=== PATIENT | female | born 1980 | race Caucasian/White ===

== ENCOUNTER 2016-11-07 17:20 | Emergency (ER) | payer BC ==
[2016-11-07] MEDS ORDERED: NS 0.9% 1000 ML* 1,000 ML IV ONE ×2 (18:15→18:58)
[2016-11-07] MEDS ORDERED: Ondansetron INJ* 2 MG/ML VIAL IV ONE (18:28)
[2016-11-07] MEDS ORDERED: Ondansetron INJ* 2 MG/ML VIAL ONE (18:28)
[2016-11-07 18:36] LABS: Hematocrit 42 % (35-47); Hemoglobin 14.2 g/dl (12.0-16.0); Mean Corpuscular HGB Conc 34 g/dl (31-36); Mean Corpuscular Hemoglobin 35 pg (27-31); Mean Corpuscular Volume 102 fL (80-97); Mean Platelet Volume 9 um3 (7.4-10.4); Red Blood Count 4.11 10^6/ul (4.0-5.4); Red Cell Distribution Width 14 % (10.5-15); White Blood Count 11.8 10^3/ul (3.5-10.8)
[2016-11-07 18:55] LABS: ALT 24 U/L (7-52); AST 36 U/L (13-39); Albumin 4.1 g/dL (3.2-5.2); Alkaline Phosphatase 75 U/L (34-104); Anion Gap 16 mmol/L (2-11); BUN/Creatinine Ratio 12.5 (8-20); Blood Urea Nitrogen 9 mg/dL (6-24); CO2 Carbon Dioxide 18 mmol/L (22-32); Calcium 9.2 mg/dL (8.6-10.3); Chloride 102 mmol/L (101-111); EGFR African American 118.5 (>60); EGFR Non-African American 92.2 (>60); Globulin 2.9 g/dL (2-4); Glucose 52 mg/dL (70-100); Lipase 13 U/L (11.0-82.0); Potassium 3.1 mmol/L (3.5-5.0); Sodium 136 mmol/L (133-145)
[2016-11-07] MEDS ORDERED: Potassium Chlor TAB* 20 MEQ TAB.ER PO ONE (18:59)
[2016-11-07 19:06] LABS: Mono Internal Control QC Line Present
[2016-11-07 20:55] LABS: Urine Bacteria Absent (Absent); Urine Bilirubin Negative (Negative); Urine Glucose Negative (Negative); Urine Nitrite Negative (Negative)
[2016-11-07 20:58] LABS: Benzodiazepine Urine Screen None Detected (None Detect)
--- NOTE | 2016-11-07 22:24 | ED ---
GI/ HPI - HPI Summary HPI Summary: 35F presents with fatigue for 3 days. He also admits to nausea and diarrhea. She admits to couple episodes of vomiting. She denies any blood in her stool. She denies any recent antibiotics usage. She denies any one else being sick. She denies any known fevers but states she has been getting cold and hot flashes. She denies any SOB, chest pain, or cough. She denies any dysuria, hematuria. She denies any neck stiffness. She denies any recent travel or camping trips. she has history of IBS. She has history of sludge in gallbladder. States has some right upper quadrant pain at baseline that remains unchanged. Has history of kidney stones that states is not acting up. - History of Current Complaint Chief Complaint: EDGeneral Time Seen by Provider: 11/07/16 18:14 Stated Complaint: FEVER Pain Intensity: 0 - Allergy/Home Medications Allergies/Adverse Reactions: Allergies Allergy/AdvReac Type Severity Reaction Status Date / Time Penicillins Allergy Hives Verified 11/07/16 18:18 PMH/Surg Hx/FS Hx/Imm Hx Endocrine/Hematology History: Denies: Hx Anticoagulant Therapy, Hx Diabetes GI History: Reports: Other GI Disorders - gallabladder sludge History: Reports: Hx Kidney Infection - Surgical History Surgery Procedure, Year, and Place: hysterectomy Infectious Disease History: No Infectious Disease History: Denies: Traveled Outside the [place] in Last 30 Days - Family History Known Family History: Positive: Cardiac Disease - Social History Alcohol Use: Occasionally Substance Use Type: Reports: None Smoking Status (MU): Current Every Day Smoker Review of Systems Positive: Fever, Chills, Fatigue Negative: Chest Pain Negative: Shortness Of Breath, Cough Positive: Vomiting, Diarrhea, Nausea. Negative: Abdominal Pain Negative: dysuria All Other Systems Reviewed And Are Negative: Yes Physical Exam Triage Information Reviewed: Yes Vital Signs On Initial Exam: Initial Vitals Temp Pulse Resp BP Pulse Ox 96 F 73 17 101/59 100 11/07/16 17:28 11/07/16 17:28 11/07/16 17:28 11/07/16 17:28 11/07/16 17:28 Vital Signs Reviewed: Yes Appearance: Positive: Ill-Appearing Skin: Positive: Warm, Dry Head/Face: Positive: Normal Head/Face Inspection Eyes: Positive: Normal, EOMI, YO, Conjunctiva Clear ENT: Positive: Normal ENT inspection, Pharynx normal, TM bulging Neck: Positive: Supple, Nontender, No Lymphadenopathy. Negative: Nuchal Rigidity Respiratory/Lung Sounds: Positive: Clear to Auscultation, Breath Sounds Present Cardiovascular: Positive: Normal, RRR Abdomen Description: Positive: Nontender, Soft Bowel Sounds: Positive: Present - Daniel Coma Scale Coma Scale Total: 15 Diagnostics - Vital Signs Vital Signs Temp Pulse Resp BP Pulse Ox 11/07/16 19:00 75 88/39 98 11/07/16 18:30 69 98/50 99 11/07/16 18:19 67 100 11/07/16 18:16 103/61 11/07/16 17:28 96 F 73 17 101/59 100 - Laboratory Lab Results: Lab Results 11/07/16 11/07/16 11/07/16 Range/Units 18:24 18:24 18:24 WBC 11.8 H (3.5-10.8) 10^3/ul RBC 4.11 (4.0-5.4) 10^6/ul Hgb 14.2 (12.0-16.0) g/dl Hct 42 (35-47) % MCV 102 H (80-97) fL MCH 35 H (27-31) pg MCHC 34 (31-36) g/dl RDW 14 (10.5-15) % Plt Count 210 (150-450) 10^3/ul MPV 9 (7.4-10.4) um3 Neut % (Auto) 71.2 (38-83) % Lymph % (Auto) 23.0 L (25-47) % Hendricks % (Auto) 4.5 (1-9) % Eos % (Auto) 0.5 (0-6) % Baso % (Auto) 0.8 (0-2) % Absolute Neuts (auto) 8.4 H (1.5-7.7) 10^3/ul Absolute Lymphs (auto) 2.7 (1.0-4.8) 10^3/ul Absolute Monos (auto) 0.5 (0-0.8) 10^3/ul Absolute Eos (auto) 0.1 (0-0.6) 10^3/ul Absolute Basos (auto) 0.1 (0-0.2) 10^3/ul Absolute Nucleated RBC 0.01 10^3/ul Nucleated RBC % 0.1 Sodium 136 (133-145) mmol/L Potassium 3.1 L (3.5-5.0) mmol/L Chloride 102 (101-111) mmol/L Carbon Dioxide 18 L (22-32) mmol/L Anion Gap 16 H (2-11) mmol/L BUN 9 (6-24) mg/dL Creatinine 0.72 (0.51-0.95) mg/dL Est GFR ( Amer) 118.5 (>60) Est GFR (Non-Af Amer) 92.2 (>60) BUN/Creatinine Ratio 12.5 (8-20) Glucose 52 L (70-100) mg/dL Lactic Acid 4.1 H* (0.5-2.0) mmol/L Calcium 9.2 (8.6-10.3) mg/dL Total Bilirubin 0.70 (0.2-1.0) mg/dL AST 36 (13-39) U/L ALT 24 (7-52) U/L Alkaline Phosphatase 75 (34-104) U/L C-React Prot High Sens 0.34 mg/L Total Protein 7.0 (6.4-8.9) g/dL Albumin 4.1 (3.2-5.2) g/dL Globulin 2.9 (2-4) g/dL Albumin/Globulin Ratio 1.4 (1-3) Lipase 13 (11.0-82.0) U/L Beta HCG, Quant < 0.60 mIU/mL Urine Color Urine Appearance Urine pH (5-9) Ur Specific [place] (1.010-1.030) Urine Protein (Negative) Urine Ketones (Negative) Urine Blood (Negative) Urine Nitrate (Negative) Urine Bilirubin (Negative) Urine Urobilinogen (Negative) Ur Leukocyte Esterase (Negative) Urine WBC (Auto) (Absent) Urine RBC (Auto) (Absent) Ur Squamous Epith Cells (Absent) Urine Bacteria (Absent) Urine Glucose (Negative) Urine Opiates Screen (None Detect) Ur Barbiturates Screen (None Detect) Ur Phencyclidine Scrn (None Detect) Ur Amphetamines Screen (None Detect) U Benzodiazepines Scrn (None Detect) Urine Cocaine Screen (None Detect) U Cannabinoids Screen (None Detect) Monoscreen Negative (Negative) Influenza A (Rapid) (Negative) Influenza B (Rapid) (Negative) Group A Strep Rapid (Negative) 11/07/16 11/07/16 11/07/16 Range/Units 18:38 18:40 20:30 WBC (3.5-10.8) 10^3/ul RBC (4.0-5.4) 10^6/ul Hgb (12.0-16.0) g/dl Hct (35-47) % MCV (80-97) fL MCH (27-31) pg MCHC (31-36) g/dl RDW (10.5-15) % Plt Count (150-450) 10^3/ul MPV (7.4-10.4) um3 Neut % (Auto) (38-83) % Lymph % (Auto) (25-47) % Hendricks % (Auto) (1-9) % Eos % (Auto) (0-6) % Baso % (Auto) (0-2) % Absolute Neuts (auto) (1.5-7.7) 10^3/ul Absolute Lymphs (auto) (1.0-4.8) 10^3/ul Absolute Monos (auto) (0-0.8) 10^3/ul Absolute Eos (auto) (0-0.6) 10^3/ul Absolute Basos (auto) (0-0.2) 10^3/ul Absolute Nucleated RBC 10^3/ul Nucleated RBC % Sodium (133-145) mmol/L Potassium (3.5-5.0) mmol/L Chloride (101-111) mmol/L Carbon Dioxide (22-32) mmol/L Anion Gap (2-11) mmol/L BUN (6-24) mg/dL Creatinine (0.51-0.95) mg/dL Est GFR ( Amer) (>60) Est GFR (Non-Af Amer) (>60) BUN/Creatinine Ratio (8-20) Glucose (70-100) mg/dL Lactic Acid (0.5-2.0) mmol/L Calcium (8.6-10.3) mg/dL Total Bilirubin (0.2-1.0) mg/dL AST (13-39) U/L ALT (7-52) U/L Alkaline Phosphatase (34-104) U/L C-React Prot High Sens mg/L Total Protein (6.4-8.9) g/dL Albumin (3.2-5.2) g/dL Globulin (2-4) g/dL Albumin/Globulin Ratio (1-3) Lipase (11.0-82.0) U/L Beta HCG, Quant mIU/mL Urine Color Yellow Urine Appearance Clear Urine pH 6.0 (5-9) Ur Specific [place] 1.014 (1.010-1.030) Urine Protein Negative (Negative) Urine Ketones 1+ H (Negative) Urine Blood 1+ H (Negative) Urine Nitrate Negative (Negative) Urine Bilirubin Negative (Negative) Urine Urobilinogen Negative (Negative) Ur Leukocyte Esterase Negative (Negative) Urine WBC (Auto) Trace(0-5/hpf) (Absent) Urine RBC (Auto) 1+(3-5/hpf) H (Absent) Ur Squamous Epith Cells Present H (Absent) Urine Bacteria Absent (Absent) Urine Glucose Negative (Negative) Urine Opiates Screen (None Detect) Ur Barbiturates Screen (None Detect) Ur Phencyclidine Scrn (None Detect) Ur Amphetamines Screen (None Detect) U Benzodiazepines Scrn (None Detect) Urine Cocaine Screen (None Detect) U Cannabinoids Screen (None Detect) Monoscreen (Negative) Influenza A (Rapid) Negative (Negative) Influenza B (Rapid) Negative (Negative) Group A Strep Rapid Negative (Negative) 11/07/16 11/07/16 Range/Units 20:30 21:13 WBC (3.5-10.8) 10^3/ul RBC (4.0-5.4) 10^6/ul Hgb (12.0-16.0) g/dl Hct (35-47) % MCV (80-97) fL MCH (27-31) pg MCHC (31-36) g/dl RDW (10.5-15) % Plt Count (150-450) 10^3/ul MPV (7.4-10.4) um3 Neut % (Auto) (38-83) % Lymph % (Auto) (25-47) % Hendricks % (Auto) (1-9) % Eos % (Auto) (0-6) % Baso % (Auto) (0-2) % Absolute Neuts (auto) (1.5-7.7) 10^3/ul Absolute Lymphs (auto) (1.0-4.8) 10^3/ul Absolute Monos (auto) (0-0.8) 10^3/ul Absolute Eos (auto) (0-0.6) 10^3/ul Absolute Basos (auto) (0-0.2) 10^3/ul Absolute Nucleated RBC 10^3/ul Nucleated RBC % Sodium (133-145) mmol/L Potassium (3.5-5.0) mmol/L Chloride (101-111) mmol/L Carbon Dioxide (22-32) mmol/L Anion Gap (2-11) mmol/L BUN (6-24) mg/dL Creatinine (0.51-0.95) mg/dL Est GFR ( Amer) (>60) Est GFR (Non-Af Amer) (>60) BUN/Creatinine Ratio (8-20) Glucose (70-100) mg/dL Lactic Acid 4.0 H* (0.5-2.0) mmol/L Calcium (8.6-10.3) mg/dL Total Bilirubin (0.2-1.0) mg/dL AST (13-39) U/L ALT (7-52) U/L Alkaline Phosphatase (34-104) U/L C-React Prot High Sens mg/L Total Protein (6.4-8.9) g/dL Albumin (3.2-5.2) g/dL Globulin (2-4) g/dL Albumin/Globulin Ratio (1-3) Lipase (11.0-82.0) U/L Beta HCG, Quant mIU/mL Urine Color Urine Appearance Urine pH (5-9) Ur Specific [place] (1.010-1.030) Urine Protein (Negative) Urine Ketones (Negative) Urine Blood (Negative) Urine Nitrate (Negative) Urine Bilirubin (Negative) Urine Urobilinogen (Negative) Ur Leukocyte Esterase (Negative) Urine WBC (Auto) (Absent) Urine RBC (Auto) (Absent) Ur Squamous Epith Cells (Absent) Urine Bacteria (Absent) Urine Glucose (Negative) Urine Opiates Screen None detected (None Detect) Ur Barbiturates Screen None detected (None Detect) Ur Phencyclidine Scrn None detected (None Detect) Ur Amphetamines Screen None detected (None Detect) U Benzodiazepines Scrn None detected (None Detect) Urine Cocaine Screen None detected (None Detect) U Cannabinoids Screen Presumptive positive H (None Detect) Monoscreen (Negative) Influenza A (Rapid) (Negative) Influenza B (Rapid) (Negative) Group A Strep Rapid (Negative) Result Diagrams: 11/07/16 18:24 11/07/16 18:24 Lab Statement: Any lab studies that have been ordered have been reviewed, and results considered in the medical decision making process. Re-Evaluation - Re-Evaluation First Eval Re-Evaluation Time: 00:00 Change: Improved Comment: lactic elevated will give 2 more liters of fluid Second Eval Re-Evaluation Time: 02:18 Change: Improved Comment: lactic 1.6. patient states would like to go home GIGU Course/Dx - Course Course Of Treatment: 35F presents with fatigue for 3 days. He also admits to nausea and diarrhea. She admits to couple episodes of vomiting. She denies any blood in her stool. She denies any recent antibiotics usage. She denies any one else being sick. She denies any known fevers but states she has been getting cold and hot flashes. She denies any SOB, chest pain, or cough. She denies any dysuria, hematuria. She denies any neck stiffness. She denies any recent travel or camping trips. she has history of IBS. She has history of sludge in gallbladder. States has some right upper quadrant pain at baseline that remains unchanged. Has history of kidney stones that states is not acting up. on exam abdomen nontender. labs wbc 12. lactric 4. ended up needing 4 liters of fluid to get lactic to 1.6 but patient feels a lot better. discussed case with dr tena and dr mahan. told to follow up with primary. patient understands and agrees with plan. - Diagnoses Differential Diagnoses - Female: Gastroenteritis (Viral), Gastroenteritis ( Bacterial), Urinary Tract Infection, Vomiting Provider Diagnoses: Fatigue, Nausea vomiting and diarrhea Discharge - Discharge Plan Condition: Good Disposition: HOME Prescriptions: Ondansetron ODT TAB* [Zofran 4 MG Odt TAB*] 4 mg PO Q6H PRN #20 tab.odt PRN Reason: Nausea Patient Education Materials: Acute Nausea and Vomiting (ED) Referrals: Sonya Rodriguez MD [Primary Care Provider] - Additional Instructions: Can take Zofran every 6 hours as needed for nausea Drink small amounts of fluid as tolerated When able to eat follow BRAT diet: Bananas, rice, applesauce, toast Take ibuprofen or Tylenol for pain as needed every 6 hours Follow up with primary within 5 days Return to ED if develop fever that does not respond to Tylenol or ibuprofen, severe abdominal pain, or any new or worsening symptoms
[2016-11-07] MEDS: NS 0.9% 1000 ML* 2,000 ML IV ONE ×2 (23:14→23:55)
[2016-11-08] MEDS ORDERED: Ondansetron ODT TAB* 4 MG PO ONE (02:19)
[2016-11-08 02:34] VITALS: BP 108/60
[2016-11-09 22:59] LABS: B garinii/B afzelii PCR Negative (Negative); B mayonii PCR Negative (Negative)
== END 2016-11-08 02:40 | disposition home or self-care (01) ==
LOC: ED 17:20
DX: R53.83 Other fatigue (principal); R19.7 Diarrhea, unspecified; R11.2 Nausea with vomiting, unspecified; F17.210 Nicotine dependence, cigarettes, uncomplicated
CPT/HCPCS: 36415; 80053; 80307; 81003; 81015; 83605; 83690; 84702; 85025; 86141; 86308; 87476; 87502; 87651; 87798; 96374; 99284; A9270-GY; J2405

== ENCOUNTER 2016-12-08 15:50 | Emergency (ER) | payer BC ==
--- NOTE | 2016-12-08 18:09 | ED ---
Complex/Multi-Sys Presentation - HPI Summary HPI Summary: 36F presents with weakness and fatigue since this morning. She states that she felt nauseous this morning. She had a headache this morning that has resolved. She has had episodes like this before that last a couple hours. She took some Tylenol with helped. She denies any aggravating or alleviating factors. She denies any abdominal pain, chest pain, SOB, parenthesis, vomiting, diarrhea , constipation, dysuria, hematuria, urgency, or frequency. She denies any fever. She states the rest of the family is sick with a cold. She is adopted so she doesn't know her medical history. - History Of Current Complaint Chief Complaint: EDGeneral Time Seen by Provider: 12/08/16 17:37 - Allergies/Home Medications Allergies/Adverse Reactions: Allergies Allergy/AdvReac Type Severity Reaction Status Date / Time Penicillins Allergy Hives Verified 11/07/16 18:18 PMH/Surg Hx/FS Hx/Imm Hx Endocrine/Hematology History: Denies: Hx Anticoagulant Therapy, Hx Diabetes GI History: Reports: Other GI Disorders - gallabladder sludge History: Reports: Hx Kidney Infection - Surgical History Surgery Procedure, Year, and Place: hysterectomy Infectious Disease History: No Infectious Disease History: Denies: Traveled Outside the [place] in Last 30 Days - Family History Known Family History: Positive: Unknown - adopted - Social History Alcohol Use: Weekly Substance Use Type: Reports: None Smoking Status (MU): Heavy Every Day Tobacco Smoker Review of Systems Negative: Fever Negative: Chest Pain Negative: Shortness Of Breath Positive: Nausea Positive: Headache, Weakness All Other Systems Reviewed And Are Negative: Yes Physical Exam Triage Information Reviewed: Yes Vital Signs On Initial Exam: Initial Vitals Temp Pulse Resp BP Pulse Ox 98.0 F 83 20 115/78 100 12/08/16 16:12 12/08/16 16:12 12/08/16 16:12 12/08/16 16:12 12/08/16 16:12 Vital Signs Reviewed: Yes Appearance: Positive: Well-Appearing Skin: Positive: Warm, Dry Head/Face: Positive: Normal Head/Face Inspection Eyes: Positive: Normal, EOMI, YO, Conjunctiva Clear ENT: Positive: Normal ENT inspection, Pharynx normal, TMs normal Respiratory/Lung Sounds: Positive: Clear to Auscultation, Breath Sounds Present Cardiovascular: Positive: Normal, RRR Abdomen Description: Positive: Nontender, Soft Bowel Sounds: Positive: Present Musculoskeletal: Positive: Normal Neurological: Positive: Normal Psychiatric: Positive: Normal - [place] Coma Scale Coma Scale Total: 15 Diagnostics - Vital Signs Vital Signs Temp Pulse Resp BP Pulse Ox 12/08/16 16:12 98.0 F 83 20 115/78 100 - Laboratory Result Diagrams: 12/08/16 18:31 12/08/16 18:31 Lab Statement: Any lab studies that have been ordered have been reviewed, and results considered in the medical decision making process. - EKG No standard instances Cardiac Rate: NL EKG Rhythm: Sinus Rhythm EKG Interpretation: normal sinus rhythm Complex Multi-Symp Course/Dx Course Of Treatment: 36F presents with weakness and fatigue since this morning. She states that she felt nauseous this morning. She had a headache this morning that has resolved. She has had episodes like this before that last a couple hours. She took some Tylenol with helped. She denies any aggravating or alleviating factors. She denies any abdominal pain, chest pain, SOB, parenthesis, vomiting, diarrhea, constipation, dysuria, hematuria, urgency, or frequency. She denies any fever. She states the rest of the family is sick with a cold. She is adopted so she doesn't know her medical history. has normal physicial exam. patient refused an IV. labs normal WBc. na,cl low, glucose low 63. LFT elevated but no RUQ pain on exam. discussed labs with dr tena. will have follow up with primary about labs. will have eat more frequenty snacks to prevent hypoglycemia. patient understands and agrees with plan. - Diagnoses Differential Diagnoses/HQI/PQRI: Urinary Tract Infection, Other - ACS, metabolic disorder Provider Diagnoses: Weakness, Hypoglycemia Discharge - Discharge Plan Condition: Good Disposition: HOME Patient Education Materials: Non-diabetic Hypoglycemia (ED) Referrals: Sonya Rodriguez MD [Primary Care Provider] - Additional Instructions: Have a snack every 2-3 hours Drink fluids throughout the day Follow up with primary care within 5 days Return to ED if develop any new or worsening symptoms
[2016-12-08 18:44] LABS: Hematocrit 40 % (35-47); Hemoglobin 13.3 g/dl (12.0-16.0); Mean Corpuscular HGB Conc 34 g/dl (31-36); Mean Corpuscular Hemoglobin 35 pg (27-31); Mean Corpuscular Volume 103 fL (80-97); Mean Platelet Volume 9 um3 (7.4-10.4); Red Blood Count 3.86 10^6/ul (4.0-5.4); Red Cell Distribution Width 14 % (10.5-15); White Blood Count 8.3 10^3/ul (3.5-10.8)
[2016-12-08 18:46] LABS: Add Diff/Slide Review? Slide Review Added; Comments Flag Yes
[2016-12-08 19:00] LABS: ALT 84 U/L (7-52); AST 96 U/L (13-39); Albumin 4.4 g/dL (3.2-5.2); Alkaline Phosphatase 62 U/L (34-104); Anion Gap 13 mmol/L (2-11); BUN/Creatinine Ratio 15.2 (8-20); Blood Urea Nitrogen 10 mg/dL (6-24); CO2 Carbon Dioxide 21 mmol/L (22-32); Calcium 9.7 mg/dL (8.6-10.3); Chloride 97 mmol/L (101-111); EGFR African American 130.3 (>60); EGFR Non-African American 101.3 (>60); Globulin 2.8 g/dL (2-4); Glucose 63 mg/dL (70-100); Magnesium 1.5 mg/dL (1.9-2.7); Potassium 4.5 mmol/L (3.5-5.0); Sodium 131 mmol/L (133-145); Total Protein 7.2 g/dL (6.4-8.9)
[2016-12-08 19:08] LABS: Platelet Morphology Large; RBC Morphology Normal (Normal)
[2016-12-08 19:20] LABS: Urine Bacteria 1+ (Absent); Urine Bilirubin Negative (Negative); Urine Glucose Negative (Negative); Urine Nitrite Negative (Negative)
[2016-12-08 19:33] LABS: TSH (Thyroid Stimulating Horm) 0.75 mcIU/mL (0.34-5.60)
[2016-12-08 19:49] VITALS: BP 119/78
== END 2016-12-08 19:48 | disposition home or self-care (01) ==
LOC: ED 15:50
DX: E16.2 Hypoglycemia, unspecified (principal); R53.1 Weakness; R53.83 Other fatigue; R11.0 Nausea; R51 Headache; F17.210 Nicotine dependence, cigarettes, uncomplicated
CPT/HCPCS: 36415; 80053; 81003; 81015; 83735; 83880; 84443; 84484; 84702; 85025; 86141; 87086; 93005; 99282

== ENCOUNTER 2018-02-07 14:00 | Emergency (ER) | payer BC, OTHER ==
[2018-02-07 17:02] VITALS: BP 105/65
--- NOTE | 2018-02-08 05:50 | ED ---
Laceration/Wound HPI - HPI Summary HPI Summary: Patient is a 37-year-old female presenting to the ED with a laceration to the distal tip of the left thumb. She states she was cutting vegetables when the knife slipped. She endorses of 5/10 pain, better with rest and worse with palpation. Bleeding is well-controlled. The laceration involves the the distal tip of the nail. Denies other symptoms or concerns. Tetanus UTD. - History of Current Complaint Stated Complaint: LAC ON THUMB Time Seen by Provider: 02/07/18 15:00 Hx Obtained From: Patient Mechanism of Injury: Sharp/Blunt Trauma Onset/Duration: Sudden Onset Aggravating: Movement Alleviating: Compression Timing: Constant Onset Severity: Mild Current Severity: Mild Pain Intensity: 2 Pain Scale Used: 0-10 Numeric Associated Signs & Symptoms: Negative Related Hx: Dominant Hand (Right) - Allergy/Home Medications Allergies/Adverse Reactions: Allergies Allergy/AdvReac Type Severity Reaction Status Date / Time MS Penicillins [Penicillins] Allergy Hives Verified 02/07/18 14:18 PMH/Surg Hx/FS Hx/Imm Hx Previously Healthy: Yes Endocrine/Hematology History: Denies: Hx Anticoagulant Therapy, Hx Diabetes GI History: Reports: Other GI Disorders - gallabladder sludge History: Reports: Hx Kidney Infection - Surgical History Surgery Procedure, Year, and Place: hysterectomy - Immunization History Hx Pertussis Vaccination: No Immunizations Up to Date: Yes Infectious Disease History: No Infectious Disease History: Denies: Traveled Outside the [place] in Last 30 Days - Family History Known Family History: Positive: Unknown - adopted, Cardiac Disease - Social History Occupation: Employed Full-time Lives: With Family Alcohol Use: Weekly Hx Substance Use: No Substance Use Type: Reports: None Hx Tobacco Use: Yes Smoking Status (MU): Heavy Every Day Tobacco Smoker Review of Systems Negative: Fever, Chills, Fatigue, Skin Diaphoresis Negative: Palpitations, Chest Pain Negative: Shortness Of Breath, Cough Genitourinary: Negative Positive: no symptoms reported, see HPI Negative: Arthralgia, Myalgia Skin: Negative Neurological: Negative All Other Systems Reviewed And Are Negative: Yes Physical Exam Triage Information Reviewed: Yes Vital Signs On Initial Exam: Initial Vitals Temp Pulse Resp BP Pulse Ox 97.9 F 64 20 120/64 99 02/07/18 14:15 02/07/18 14:15 02/07/18 14:15 02/07/18 14:15 02/07/18 14:15 Vital Signs Reviewed: Yes Appearance: Positive: Well-Appearing, Well-Nourished Skin: Positive: Skin Color Reflects Adequate Perfusion, Other - small semi- circular laceration to the distal tip of the left thumb - measuring .7cm Head/Face: Positive: Normal Head/Face Inspection Eyes: Positive: EOMI, YO, Conjunctiva Clear Neck: Positive: Supple Respiratory/Lung Sounds: Positive: Clear to Auscultation, Breath Sounds Present Musculoskeletal: Positive: Strength/ROM Intact Neurological: Positive: Speech Normal Psychiatric: Positive: Affect/Mood Appropriate Diagnostics - Vital Signs Vital Signs Temp Pulse Resp BP Pulse Ox 02/07/18 17:01 97.7 F 99 18 105/65 100 02/07/18 14:15 97.9 F 64 20 120/64 99 - Laboratory Lab Statement: Any lab studies that have been ordered have been reviewed, and results considered in the medical decision making process. Laceration Repair Course/Dx - Course Course Of Treatment: During the course treatment, the patient is evaluated for this tip of the left thumb injury. There is a point a semicircular laceration to the distal tip of the thumb involving the tip of the nail. Skin remains intact and there is no need for suture closure. Cleansed wasn't thoroughly with chlorhexidine and normal saline. Applied pressure, occlusive gauze and tube gauze. Patient will keep this area covered with pressure 5 days. Discussed with patient that nail tip will likely fall off spontaneously over the next 2 weeks. - Differential Dx Differental Diagnoses: Laceration - Clinical Impression Provider Diagnoses: Laceration Discharge - Sign-Out/Discharge Documenting (check all that apply): Patient Departure - Discharge Plan Condition: Stable Disposition: HOME Referrals: No Primary Care Phys,NOPCP [Primary Care Provider] - Additional Instructions: Keep applied pressure to the tip of the wound the nail tip will fall off, or you can take it off the tip will slowly grow back out there is no need for sutures if there is applied pressure - Billing Disposition and Condition Condition: STABLE Disposition: Home
== END 2018-02-07 17:03 | disposition home or self-care (01) ==
LOC: ED 14:00
DX: S61.012A Laceration without foreign body of left thumb without damage to nail, initial encounter (principal); W26.0XXA Contact with knife, initial encounter; Y93.G1 Activity, food preparation and clean up; Y92.9 Unspecified place or not applicable; Z88.0 Allergy status to penicillin; Z72.0 Tobacco use
CPT/HCPCS: 99282

== ENCOUNTER 2019-03-31 11:13 | Emergency (ER) | payer OTHER ==
--- OUTSIDE RECORDS SUMMARY | 2019-03-31 11:19 | XMS REPORT | Summary of Care ---
:1980 Author Organization [facility] Address [address] [address] Care Team Providers Name Role Phone Vi Rush Primary Care Provider Reason for Referral Refer to Department Only (Routine) Status Reason Specialty Diagnoses / Referred By Referred To Procedures Contact Contact Pending Review Physical Diagnoses Back pain, unspecified back location, unspecified back pain laterality, unspecified chronicity Nam Quinn FNP Orthopaedics - [address] [place] [address] [place] [address] [address] Phone: [place], [place] [phone] Fax: Reason for Visit Reason Comments Follow Up Encounter Details Date Type Department Care Team Description 03/18/2019 Office Visit [facility] Sera Quinn, Back pain, unspecified Practice [facility] back location, [address] [place] [address] [place] [address] [place] [address] laterality, unspecified chronicity (Primary Dx) Allergies Active Allergy Reactions Severity Noted Date Comments Amitriptyline Other 05/24/2015 Urinary retention Latex Rash 11/10/2016 Penicillins Hives 07/13/2006 documented as of this encounter (statuses as of 03/18/2019) Medications Medication Sig Dispensed Refills Start End Date Status Date albuterol HFA Take 2 Puffs 1 Inhaler 0 Active (VENTOLIN) 108 (90 by inhalation 5 BASE) MCG/ACT EVERY FOUR Inhalation Aero HOURS SolnIndications: NEEDED Asthma exacerbation (shortness of breath). duloxetine Take 1 Cap by 90 Cap 0 Active (CYMBALTA) 30 MG mouth 8 Oral CAPSULE ENTERIC DIRECTED. 1 COATED cap daily for PARTICLESIndications 5 days then 2 : Anxiety caps daily onwards hydrOXYzine HCL Take 1 Tab by 60 Tab 0 Active (ATARAX) 10 MG Oral mouth EVERY 8 TabIndications: EIGHT HOURS Anxiety NEEDED for anxiety. Benzonatate 200 MG Take 1 Cap by 40 Cap 1 Active Oral CapIndications: mouth THREE 9 Acute bronchitis, TIMES DAILY unspecified organism NEEDED (cough). HYDROcodone-acetamin Take 1 Tab by 20 Tab 0 Active ophen (NORCO) 5-325 mouth EVERY 0 MG Oral SIX HOURS TabIndications: NEEDED (back Acute bilateral low pain). Max back pain with Daily Amount: right-sided sciatica 4 Tabs. ondansetron (ZOFRAN Take 1 Tab by 25 Tab 0 Active ODT) 4 MG Oral mouth EVERY 0 TABLET DISPERSIBLE SIX HOURS NEEDED (nausea). cyclobenzaprine Take 1 Tab by 50 Tab 0 Active (FLEXERIL) 10 MG mouth THREE 0 Oral TabIndications: TIMES DAILY Back pain, NEEDED (back unspecified back pain). location, unspecified back pain laterality, unspecified chronicity cyclobenzaprine Take 1 Tab by 42 Tab 0 03/18/19 Discontinued (FLEXERIL) 10 MG mouth THREE 8 20 (Reorder) Oral TabIndications: TIMES DAILY Back pain, NEEDED for unspecified back muscle spasm. location, unspecified back pain laterality, unspecified chronicity predniSONE Take 1 Tab by 12 Tab 0 03/18/19 Discontinued (DELTASONE) 20 MG mouth 0 20 (Therapy Oral TabIndications: DIRECTED. Take Completed) Acute bilateral low 2 tabs a day back pain with for 4 days, right-sided sciatica then one tab a day for 4 days. documented as of this encounter (statuses as of 03/18/2019) Active Problems Problem Noted Date Smoking addiction 05/03/2016 Overview: Bupropion for cessation History of marijuana use 11/06/2014 Alcohol dependence 03/05/2014 Adenomyosis 12/24/2013 IBS (irritable bowel syndrome) 02/24/2013 Overview: Constipation predominant - last saw GI in 2007 Moderate dysplasia of cervix 09/06/2012 Overview: S/p total hysterectomy & BL salpingectomy 12/2013, clear margins, per his documentation no further need for Pap smear Adult BMI 19-24 kg/sq m 09/12/2010 Anxiety state, unspecified 10/14/2009 Elevated LFTs documented as of this encounter (statuses as of 03/18/2019) Resolved Problems Problem Noted Date Resolved Date Edema 06/11/2009 11/06/2014 Fitting and adjustment of urinary device 08/21/2006 11/06/2014 Hydronephrosis 08/10/2006 11/06/2014 Abdominal pain, other specified site 07/25/2006 11/06/2014 Other postprocedural status(V45.89) 07/25/2006 11/06/2014 Calculus of kidney 07/13/2006 11/06/2014 Other specified pre-operative examination 07/13/2006 11/06/2014 Unspecified symptom associated with female genital organs 10/15/20042014 Other general symptoms(780.99) 10/04/2004 11/06/2014 documented as of this encounter (statuses as of 03/18/2019) Social History Tobacco Use Types Packs/Day Years Used Date Current Every Day Smoker Cigarettes 0.5 0 Quit: 05/14/2015 Smokeless Tobacco: Never Used Comments: smoked on/off since 16. trying to quit Alcohol Use Drinks/Week oz/Week Comments Yes 4-6 Glasses of wine 0.0 intermittent, currently 4/day Sex Assigned at Date Recorded Not on file Job Start Date Occupation Industry Not on file Not on file Not on file Travel History Travel Start Travel End No recent travel history available. documented as of this encounter Last Filed Vital Signs Vital Sign Reading Time Taken Comments Blood Pressure 108/64 03/18/2019 8:36 AM EST Pulse 96 03/18/2019 8:36 AM EST Temperature - - Respiratory Rate - - Oxygen Saturation 96% 03/18/2019 8:36 AM EST Inhaled Oxygen Concentration - - Weight 81.2 kg (179 lb) 03/18/2019 8:36 AM EST Height 180.3 cm (5' 11") 03/18/2019 8:36 AM EST Body Mass Index 24.97 03/18/2019 8:36 AM EST documented in this encounter Patient Instructions Patient InstructionsSera Quinn FNP - 03/18/2019 8:[facility] Nam Jacobson Prescriptions sent to your pharmacy. Follow up as needed.Electronically signed by Sera Quinn FNP at 2019 8:45 AM EST documented in this encounter Progress Notes Sera Quinn FNP - 03/18/2019 8:20 AM EST PATIENT: Allyn Rehman : 1980 DATE OF SERVICE: 03/18/2019 Chief Complaint Patient presents with Follow Up SUBJECTIVE: Allyn Rehman is a 38-y.o. female who is here for follow up of lower back pain. She has been seeing chiropractor and would like to see PT. Her pain is some better today. She took course of prednisone which has helped. She is also using flexeril and vicodin at hs if needed. She denies any leg pain, weakness or numbness. No fever. No fall or trauma. Patient Active Problem List Diagnosis Date Noted Elevated LFTs Smoking addiction 05/03/2016 Bupropion for cessation History of marijuana use 11/06/2014 Alcohol dependence 03/05/2014 Adenomyosis 12/24/2013 IBS (irritable bowel syndrome) 02/24/2013 Constipation predominant - last saw GI in 2007 Moderate dysplasia of cervix 09/06/2012 S/p total hysterectomy & BL salpingectomy 12/2013, clear margins, per his documentation no further need for Pap smear Adult BMI 19-24 kg/sq m 09/12/2010 Anxiety state, unspecified 10/14/2009 Current Outpatient Medications Medication Sig albuterol HFA (VENTOLIN) 108 (90 BASE) MCG/ACT Inhalation Aero Soln Take 2 Puffs by inhalation EVERY FOUR HOURS NEEDED (shortness of breath). Benzonatate 200 MG Oral Cap Take 1 Cap by mouth THREE TIMES DAILY NEEDED (cough). cyclobenzaprine (FLEXERIL) 10 MG Oral Tab Take 1 Tab by mouth THREE TIMES DAILY NEEDED (back pain). duloxetine (CYMBALTA) 30 MG Oral CAPSULE ENTERIC COATED PARTICLES Take 1 Cap by mouth DIRECTED. 1 cap daily for 5 days then 2 caps daily onwards HYDROcodone-acetaminophen (NORCO) 5-325 MG Oral Tab Take 1 Tab by mouth EVERY SIX HOURS NEEDED (back pain). Max Daily Amount: 4 Tabs. hydrOXYzine HCL (ATARAX) 10 MG Oral Tab Take 1 Tab by mouth EVERY EIGHT HOURS NEEDED for anxiety. ondansetron (ZOFRAN ODT) 4 MG Oral TABLET DISPERSIBLE Take 1 Tab by mouth EVERY SIX HOURS NEEDED (nausea). No current facility-administered medications for this visit. OBJECTIVE: BP 108/64 (BP Location: Right arm, Patient Position: Sitting) | Pulse 96 | Ht 5' 11" (1.803 m) | Wt 179 lb (81.2 kg) | SpO2 96% | BMI 24.97 kg/m She is alert and in no distress..Standing throughout visit as painful to sit. She has reduced and painful range of motion of LS spine. Normal gait. Normal sensation and strength in legs. ASSESSMENT: ICD-9-CM ICD-10-CM 1. Back pain, unspecified back location, unspecified back pain laterality, unspecified chronicity 724.5 M54.9 cyclobenzaprine (FLEXERIL) 10 MG Oral Tab REFER TO PHYSICAL THERAPY / REHAB Patient Instructions Schedule physical therapy Nam Jacobson Prescriptions sent to your pharmacy. Follow up as needed. Author: JAIDA Worley 03/18/2019 08:50 documented in this encounter Plan of Treatment Name Type Priority Associated Diagnoses Order Schedule REFER TO PHYSICAL Referral Routine Back pain, unspecified Ordered: 2019 THERAPY / REHAB back location, unspecified back pain laterality, unspecified chronicity Health Maintenance Due Date Last Done Comments PNEUMOCOCCAL 0-64 YRS (1 of 1 - 1986 PPSV23) DTaP/Tdap/Td Vaccines (1 - Tdap) 11/10/1991 DEPRESSION SCREENING 1992 INFLUENZA VACCINE (#1) 2018 HEPATITIS A IMMUNIZATION SERIES Aged Out No longer eligible based on patient's age to complete this topic HPV IMMUNIZATION SERIES Aged Out No longer eligible based on patient's age to complete this topic MENINGOCOCCAL VACCINE IMM Aged Out No longer eligible based on patient's age to complete this topic documented as of this encounter Results Not on filedocumented in this encounter Visit Diagnoses Diagnosis Back pain, unspecified back location, unspecified back pain laterality, unspecified chronicity documented in this encounter Insurance Payer Benefit Plan / Subscriber ID Effective Dates Phone Address Type Group MISAEL TODDLIS [facility] xxxxxxxxxxx 2017-Present Misael documented as of this encounter Advance Directives Code Status Date Activated Date Inactivated Comments Full Code 12/30/2013 12:42 PM 12/30/2013 7:26 PM Full
--- OUTSIDE RECORDS SUMMARY | 2019-03-31 11:20 | XMS REPORT | Summary of Care ---
:1980 Author Organization [facility] Address [address] [address] Care Team Providers Name Role Phone Vi Rush Primary Care Provider Reason for Visit Reason Comments Back Pain low back pain radiates done leg, started Sunday, denies injury, saw chiropractor yesterday Encounter Details Date Type Department Care Team Description 03/11/2019 Office Visit [facility] Sera Quinn, Acute bilateral low Practice [facility]ER back pain with [address] [place] [address] [place] [address] (Primary Dx) [phone] Allergies Active Allergy Reactions Severity Noted Date Comments Amitriptyline Other 05/24/2015 Urinary retention Latex Rash 11/10/2016 Penicillins Hives 07/13/2006 documented as of this encounter (statuses as of 03/11/2019) Medications Medication Sig Dispensed Refills Start End Date Status Date albuterol HFA Take 2 Puffs 1 Inhaler 0 Active (VENTOLIN) 108 (90 by inhalation 5 BASE) MCG/ACT EVERY FOUR Inhalation Aero HOURS SolnIndications: NEEDED Asthma exacerbation (shortness of breath). cyclobenzaprine Take 1 Tab by 42 Tab 0 Active (FLEXERIL) 10 MG mouth THREE 8 Oral TabIndications: TIMES DAILY Back pain, NEEDED for unspecified back muscle spasm. location, unspecified back pain laterality, unspecified chronicity duloxetine Take 1 Cap by 90 Cap [...] bronchitis, TIMES DAILY unspecified organism NEEDED (cough). predniSONE Take 1 Tab by 12 Tab 0 Active (DELTASONE) 20 MG mouth 0 Oral TabIndications: DIRECTED. Take Acute bilateral low 2 tabs a day back pain with for 4 days, right-sided sciatica then one tab a day for 4 days. HYDROcodone-acetamin Take 1 Tab by 20 Tab 0 Active ophen (NORCO) 5-325 mouth EVERY 0 MG Oral SIX HOURS TabIndications: NEEDED (back Acute bilateral low pain). Max back pain with Daily Amount: right-sided sciatica 4 Tabs. ondansetron (ZOFRAN Take 1 Tab by 25 Tab 0 Active ODT) 4 MG Oral mouth EVERY 0 TABLET DISPERSIBLE SIX HOURS NEEDED (nausea). Varenicline Tartrate Take 1 Tab by 180 Tab 0 03/11/19 Discontinued (CHANTIX CONTINUING mouth 8 20 (Patient stopped MONTH ) 1 MG Oral DIRECTED. 1 mg the medication) TabIndications: bid Smoking trying to quit documented as of this encounter (statuses as of 03/11/2019) Active Problems Problem Noted Date Smoking addiction [...] as of this encounter (statuses as of 03/11/2019) Resolved Problems Problem Noted Date Resolved Date [...] as of this encounter (statuses as of 03/11/2019) Social History Tobacco Use Types Packs/Day Years [...] Sign Reading Time Taken Comments Blood Pressure 124/88 03/11/2019 11:42 AM EST Pulse 88 03/11/2019 11:42 AM EST Temperature - - Respiratory Rate - - Oxygen Saturation 93% 03/11/2019 11:42 AM EST Inhaled Oxygen Concentration - - Weight 83.5 kg (184 lb) 03/11/2019 11:42 AM EST Height 180.3 cm (5' 11") 03/11/2019 11:42 AM EST Body Mass Index 25.66 03/11/2019 11:42 AM EST documented in this encounter Patient Instructions Patient InstructionsSera Quinn FNP - 03/11/2019 11:40 AM ESTTake prednisone over next 8 days Continue with chiropractor. No ibuprofen while on prednisone. Pain med for severe pain documented in this encounter Progress Notes Sera Quinn FNP - 03/11/2019 11:40 AM EST PATIENT: Allyn Rehman : 1980 DATE OF SERVICE: 03/11/2019 Chief Complaint Patient presents with Back Pain low back pain radiates done leg, started Sunday, denies injury, saw chiropractor yesterday SUBJECTIVE: Allyn Rehman is a 38-y.o. female who is here with 2 days of lower back pain across lumbar area, worse on right and pain radiates down buttock and right leg to knee. No know injury or trauma. No weakness or numbness in the leg. No bowel or bladder function problems. No fever. She saw chiropractor yesterday and will see again tomorrow. She is taking 800 mg ibuprofen and flexeril prn and not touching the pain. She has to work and all positions are painful. Patient Active Problem List Diagnosis Date Noted [...] Tab by mouth THREE TIMES DAILY NEEDED formuscle spasm. duloxetine (CYMBALTA) 30 MG Oral CAPSULE ENTERIC [...] by mouth EVERY SIX HOURS NEEDED (nausea). predniSONE (DELTASONE) 20 MG Oral Tab Take 1 Tab by mouth DIRECTED. Take 2 tabs a day for 4 days, then one tab a day for 4 days. No current facility-administered medications for this visit. OBJECTIVE: BP 124/88 (BP Location: Left arm, Patient Position: Sitting) | Pulse 88 | Ht 5' 11" (1.803 m) | Wt 184 lb (83.5 kg) | SpO2 93% | BMI 25.66 kg/m she is alert and in discomfort and unable to sit during visit. She has reduced and painful range of motion of LS spine. Gait steady. Normal sensation and strength in legs. ASSESSMENT: ICD-9-CM ICD-10-CM 1. Acute bilateral low back pain with right-sided sciatica 724.2 M54.41 predniSONE (DELTASONE) 20 MGOral Tab 724.3 HYDROcodone-acetaminophen (NORCO) 5-325 MG Oral Tab 338.19 Patient Instructions Take prednisone over next 8 days Continue with chiropractor. No ibuprofen while on prednisone. Pain med for severe pain Author: JAIDA Worley 03/11/2019 12:08 documented in this encounter Plan of Treatment Health Maintenance Due Date Last Done Comments PNEUMOCOCCAL 0-64 YRS (1 of - 1986 PPSV23) DTaP/Tdap/Td Vaccines (1 - [...] filedocumented in this encounter Visit Diagnoses Diagnosis Acute bilateral low back pain with right-sided sciatica documented in this encounter Insurance Payer Benefit Plan / Subscriber ID Effective Dates Phone Address Type Group MISAEL BENITEZ [facility] xxxxxxxxxxx 2017-Present Misael documented as of this encounter Advance Directives Code Status Date Activated Date Inactivated Comments Full Code 12/30/2013 12:42 PM 12/30/2013 7:26 PM Full
[2019-03-31 11:40] VITALS: BP 104/64
--- NOTE | 2019-03-31 12:40 | UC ---
Back Pain HPI - HPI Summary HPI Summary: Patient is a 38yo female presenting with lower back pain x3 weeks. Patient denies trauma or injury. States she woke up with the pain. Describes pain as dull ache and then intermittent sharp stabbing pains that radiate across entire lower back. States this happened yesterday while she was getting in the car and it made her legs give out but she caught herself. States pain better with lying down. Worse with sitting and walking. Denies numbness and tingling. Denies bowel and bladder incontinence. States able to ambulate but slowly due to pain. States she has been seeing a chiropractor and [facility] States chiropractor not helping. States [facility]ER gave her prednisone which she felt helped but that she would not give her any more. Also taking ibuprofen and applying heat without relief. - History of Current Complaint Chief Complaint: UCBackPain Stated Complaint: BACKPAIN Hx Obtained From: Patient Hx Last Menstrual Period: none Pain Intensity: 10 - Allergies/Home Medications Allergies/Adverse Reactions: Allergies Allergy/AdvReac Type Severity Reaction Status Date / Time amitriptyline Allergy See Comment Verified 03/31/19 11:41 Penicillins Allergy Hives Verified 03/31/19 11:41 Home Medications: Home Medications Acetaminophen TAB* [Tylenol TAB*] 975 mg PO Q6H PRN 03/31/19 [History Confirmed 03/31/19] Cyclobenzaprine TAB* [Flexeril 10 MG TAB*] 10 mg PO TID PRN 03/31/19 [History Confirmed 03/31/19] Ibuprofen TAB* [Motrin TAB* 600 MG] 600 mg PO Q6H PRN 03/31/19 [History Confirmed 03/31/19] PMH/Surg Hx/FS Hx/Imm Hx Other History Of: Negative For: Anticoagulant Therapy - Surgical History Surgical History: Yes Surgery Procedure, Year, and Place: vericose veins stripped, hysterectomy - Family History Known Family History: Positive: Unknown - adopted, Cardiac Disease - Social History Alcohol Use: Rare Substance Use Type: None Smoking Status (MU): Light Every Day Tobacco Smoker Review of Systems All Other Systems Reviewed And Are Negative: No Constitutional: Positive: Negative Skin: Positive: Negative Respiratory: Positive: Negative Cardiovascular: Positive: Negative Gastrointestinal: Positive: Negative Neurovascular: Positive: Negative. Negative: Decreased Sensation Musculoskeletal: Positive: Arthralgia - lowr back Neurological/Mental Status: Positive: Negative. Negative: Paresthesia, Numbness Physical Exam - Summary Physical Exam Summary: Vital Signs Reviewed: Yes A+Ox3, no distress Eyes: Conjunctiva Clear ENT: Hearing grossly normal Neck: Positive: Supple Respiratory: Positive: No respiratory distress, No accessory muscle use + CTA throughout no w/r Cardiovascular: RRR nl s1, s2 no m/r Abd/: no CVA tenderness Musculoskeletal Exam: [place] x 4, +TTP of lumbarsacral spine, decreased ROM lower back due to pain, sensation grossly intact, no erythema or ecchymosis appreaciated Neurological: Positive: Alert, + sensation throughout Psychological: Positive: age appropriate behavior Skin: Positive: no rash, no ecchymosis Vital Signs: Initial Vital Signs Temp 98.3 F 03/31/19 11:33 Pulse 97 03/31/19 11:33 Resp 18 03/31/19 11:33 BP 104/64 03/31/19 11:33 Pulse Ox 98 03/31/19 11:33 Diagnostics - Radiology lumbarsacral Radiology Interpretation Completed By: Radiologist Summary of Radiographic Findings: IMPRESSION: 1. MILD SCOLIOSIS. 2. MILD DISC SPACE NARROWING AT THE L5-S1 LEVEL. Back Pain Course/Dx - Course Course Of Treatment: Discussed radiograph findings with patient. Instructed to continue with rest, heat, stretching, and otc analgesics. Instructed to continue with flexeril and to go to Ed with any new or worsening symptoms. Instructed to follow up as soon as possible with sports medicine for further evaluation and treatment. Patient voiced understanding and agreed with treatment plan. - Differential Dx/Diagnosis Differential Diagnosis/HQI/PQRI: Herniated Disc, Strain, Sprain, Other - spasm Provider Diagnosis: Scoliosis of lumbar spine, DDD (degenerative disc disease), lumbosacral, Acute low back pain Discharge ED - Sign-Out/Discharge Documenting (check all that apply): Patient Departure All imaging exams completed and their final reports reviewed: Yes - Discharge Plan Condition: Stable Disposition: HOME Patient Education Materials: Acute Low Back Pain (ED), Lower Back Exercises (ED ) Referrals: [facility] [Outside] Additional Instructions: As discussed, your xrays revealed scoliosis in your lower back and mild degenerative disc disease. Rest, heat, and stretch to help alleviate pain. You may also use over the counter lidocaine patches (Salonpas). You may continue with flexeril, ibuprofen, and tylenol as directed. Follow up with the sports medicine referral listed below for further evaluation and treatment. Go to the emergency room if you experience new or worsening symptoms, including increasing pain, numbness and tingling, or bowel or bladder incontinence. - Billing Disposition and Condition Condition: STABLE Disposition: Home
== END 2019-03-31 13:29 | disposition home or self-care (01) ==
LOC: UCEAST 11:13
DX: M54.5 Low back pain (principal); M41.86 Other forms of scoliosis, lumbar region; M51.37 Other intervertebral disc degeneration, lumbosacral region; M41.87 Other forms of scoliosis, lumbosacral region; F17.290 Nicotine dependence, other tobacco product, uncomplicated; M48.07 Spinal stenosis, lumbosacral region; Z88.0 Allergy status to penicillin; Z88.8 Allergy status to other drugs, medicaments and biological substances
CPT/HCPCS: 72110; 99211; G0463

== ENCOUNTER 2019-04-03 11:11 | Inpatient (IN) | payer OTHER ==
--- NOTE | 2019-04-03 11:47 | ED ---
Back Pain - HPI Summary HPI Summary: Patient is a 38 y/o F presenting to the ED for a chief complaint of lower back pain and bilateral hip pain for the last 3 weeks and 4 days. Patient states that the back pain began suddenly and worsened on 03/30/19 when she slipped and fell. At that time, she reports she had bilateral LE weakness and her back "locked up." On 03/29/19, she notes having some urinary leakage. Patient denies numbness or paresthesia in the bilateral LE, bowel incontinence, or saddle anesthesia. The pain worsens with movement and ambulation. Patient went to see her chiropractor for an adjustment on 03/31/19 and was told she could possibly have a herniated disc. She was also seen by her PCP at [place] on 03/27/19 and prescribed prednisone and hydrocodone with relief. Patient was also seen at Urgent Care and had an x-ray that showed stenosis. Patient has a physical therapy appointment scheduled for 04/07/19 and a sports medicine appointment next week. PMHx is significant for PTSD. FMHx is significant for DM. - History of Current Complaint Chief Complaint: EDBackInjuryPain Stated Complaint: BACK PAIN PER PT Time Seen by Provider: 04/03/19 11:29 Hx Obtained From: Patient Hx Last Menstrual Period: none Onset/Duration: Sudden Onset, Still Present Onset/Duration: Atraumatic, Still Present Timing: Constant Severity Initially: Severe Severity Currently: Severe Pain Intensity: 9 Pain Scale Used: 0-10 Numeric Aggravating Symptom(s): Movement, Other - Ambulation Alleviating Symptom(s): Nothing Associated Signs And Symptoms: Positive: Weakness - Bilateral LE, Bladder Incontinence, Pain with Weight Bearing. Negative: Numbness - Bilateral LE, Tingling - Bilateral LE or saddle, Bowel Incontinence - Allergies/Home Medications Allergies/Adverse Reactions: Allergies Allergy/AdvReac Type Severity Reaction Status Date / Time amitriptyline Allergy See Comment Verified 04/03/19 11:14 Penicillins Allergy Hives Verified 04/03/19 11:14 Home Medications: Home Medications Acetaminophen TAB* [Tylenol TAB*] 1,000 mg PO Q6H PRN 03/31/19 [History Confirmed 04/03/19] Cyclobenzaprine TAB* [Flexeril 10 MG TAB*] 10 mg PO TID PRN 03/31/19 [History Confirmed 04/03/19] Ibuprofen TAB* [Motrin TAB* 600 MG] 800 mg PO Q6H PRN 03/31/19 [History Confirmed 04/03/19] PMH/Surg Hx/FS Hx/Imm Hx Previously Healthy: Yes Endocrine/Hematology History: Denies: Hx Anticoagulant Therapy, Hx Diabetes Respiratory History: Reports: Hx Asthma GI History: Reports: Other GI Disorders - gallabladder sludge History: Reports: Hx Kidney Infection Sensory History: Reports: Hx Contacts or Glasses Denies: Hx Legally Blind, Hx Deafness Opthamlomology History: Reports: Hx Contacts or Glasses Denies: Hx Legally Blind EENT History: Denies: Hx Deafness - Surgical History Surgical History: Yes Surgery Procedure, Year, and Place: vericose veins stripped, hysterectomy Infectious Disease History: Yes Infectious Disease History: Reports: Hx Shingles - on back in 2017 Denies: Traveled Outside the [place] in Last 30 Days - Family History Known Family History: Positive: Cardiac Disease, Diabetes - Social History Occupation: Employed Full-time Lives: With Family Alcohol Use: Rare Hx Substance Use: No Substance Use Type: Reports: None Hx Tobacco Use: Yes Smoking Status (MU): Light Every Day Tobacco Smoker Review of Systems Positive: incontinence - Positive urinary; negative bowel Positive: Arthralgia - Bilateral hips, Myalgia - Lower back Positive: Weakness - Bilateral LE. Negative: Paresthesia - Bilateral LE or saddle, Numbness - Bilateral LE All Other Systems Reviewed And Are Negative: Yes Physical Exam - Summary Physical Exam Summary: Constitutional: Well-developed, Well-nourished, Alert. (-) Distressed Skin: Warm, Dry HENT: Normocephalic; Atraumatic Eyes: Conjunctiva normal Neck: Musculoskeletal ROM normal neck. (-) JVD, (-) Stridor, (-) Nuchal rigidity Cardio: Rhythm regular, rate normal, Heart sounds normal; Intact distal pulses; Radial pulses are 2+ and symmetric. (-) Murmur Pulmonary/Chest wall: Effort normal. (-) Respiratory distress, (-) Wheezes, (-) Rales Abd: Soft, (-) tenderness, (-) Distension, (-) Guarding, (-) Rebound Musculoskeletal: (-) Edema. Lumbar midline and lower thoracic tenderness. Neuro: Alert, Oriented x3, strength 5/5 UE, LE. SILT. Rectal good tone, no saddle anesthesia (brooke Fernández Rn) Psych: Mood and affect Normal Triage Information Reviewed: Yes Vital Signs On Initial Exam: Initial Vitals Temp Pulse Resp BP Pulse Ox 98.7 F 89 20 109/71 99 04/03/19 11:13 04/03/19 11:13 04/03/19 11:13 04/03/19 11:13 04/03/19 11:13 Vital Signs Reviewed: Yes Procedures - Sedation Patient Received Moderate/Deep Sedation with Procedure: No Diagnostics - Vital Signs Vital Signs Temp Pulse Resp BP Pulse Ox 04/03/19 11:13 98.7 F 89 20 109/71 99 - Laboratory Lab Statement: Any lab studies that have been ordered have been reviewed, and results considered in the medical decision making process. - Radiology Thoracic MRI Radiology Interpretation Completed By: Radiologist Summary of Radiographic Findings: Thoracic Spine MRI IMPRESSION: NO SIGNIFICANT NEUROFORAMINAL NARROWING OR CENTRAL CANAL STENOSIS. UNREMARKABLE MRI OF THE THORACIC SPINE. Reviewed by Dr. Leavitt. Lumbar MRI Radiology Interpretation Completed By: Radiologist Summary of Radiographic Findings: Lumbar Spine MRI IMPRESSION: 1. An 8 mm central to left paracentral disc extrusion at L5-S1 contacts and displaces the descending left S1 nerve root. There is moderate spinal canal and mild left neural foraminal stenosis at this level. 2. Mixed Modic type I and Modic type II degenerative endplate changes at L5-S1 are potential source of focal back pain. Reviewed by Dr. Leavitt. Re-Evaluation - Re-Evaluation First Eval Re-Evaluation Time: 15:08 Change: Unchanged Comment: At 15:08, patient wants to try a course of steroids. Her rectal exam is normal. Given pain control. Will discuss MRI w NSGY Back Pain Course/Dx - Course Course Of Treatment: 38 y/o F w worsening lower back pain. - atraumatic, no infectious symptoms. Having severe lower back pain. No appreciable weakness on exam, SILT, normal rectal tone. Did report possible bladder incontinence, post void residual 0 cc. MRI obtained shows L5-S1 disc herniation. D/w NSGY who requests hospital admission for surgery given severity of symptoms. - Diagnoses Provider Diagnoses: Herniated disc, Back pain - Provider Notifications Discussed Care Of Patient With: Jaspreet Leos - At 15:00, Dr. Leos recommends a rectal exam. He states that if patients pain is intractable, she will be admitted, but if she can walk, patient can follow up in outpatient. At 16:05, Dr. Leos reviewed the patients case and agrees to admit the patient to [facility] [place] with a diagnosis of herniated disc and back pain. Time Discussed With Above Provider: 15:00 Discharge ED - Sign-Out/Discharge Documenting (check all that apply): Patient Departure - Admit - Discharge Plan Condition: Stable Disposition: ADMITTED TO [facility] Referrals: [facility] [Outside] - Billing Disposition and Condition Condition: STABLE Disposition: Admitted to [facility] - Attestation Statements Document Initiated by Scribe: Yes Documenting Scribe: Jackie Diana Provider For Whom Prince is Documenting (Include Credential): Kelsey Leavitt MD Scribe Attestation: Jackie Ramirez, scribed for Kelsey Leavitt MD on 04/03/19 at 1657. Scribe Documentation Reviewed: Yes Provider Attestation: The documentation as recorded by the scribeJackie accurately reflects the service I personally performed and the decisions made by , Kelsey Leavitt MD Status of Scribe Document: Viewed
[2019-04-03] MEDS ORDERED: Diazepam TAB(*) 5 MG PO ONE (11:56)
[2019-04-03] MEDS ORDERED: Ketorolac INJ* 30 MG/ML 1 ML VIAL IV ONE (11:56)
[2019-04-03] MEDS ORDERED: oxyCODONE/Acetamin 5/325 MG* TAB PO ONE (15:00)
[2019-04-03] MEDS ORDERED: traMADol TAB* 50 MG PO ONE (15:09)
[2019-04-03 17:24] LABS: ABS Basophils 0.1 10^3/ul (0-0.2); ABS Eosinophils 0.1 10^3/ul (0-0.6); ABS Lymphocytes 2.6 10^3/ul (1.0-4.8); ABS Monocytes 0.3 10^3/ul (0-0.8); ABS Neutrophils 2.1 10^3/ul (1.5-7.7); Eosinophil % 2.2 %; Hematocrit 36 % (35-47); Hemoglobin 12.4 g/dL (12.0-16.0); Lymphocyte % 50.6 %; Mean Corpuscular HGB Conc 35 g/dL (31-36); Mean Corpuscular Hemoglobin 35 pg (27-31); Mean Corpuscular Volume 100 fL (80-97); Mean Platelet Volume 7.2 fL (7.4-10.4); Nucleated Red Blood Cells % 0.1; Platelet Count 301 10^3/uL (150-450); Red Cell Distribution Width 15 % (10-15); White Blood Count 5.1 10^3/uL (3.5-10.8)
[2019-04-03] MEDS ORDERED: Ondansetron INJ* 2 MG/ML VIAL IV PRN (17:28)
[2019-04-03] MEDS ORDERED: oxyCODONE/Acetamin 5/325 MG* TAB PO PRN ×2 (17:28→17:44)
[2019-04-03] MEDS ORDERED: Acetaminophen TAB* 325 MG PO PRN (17:28)
[2019-04-03 17:34] LABS: INR 0.93 (0.82-1.09)
[2019-04-03 17:41] LABS: Albumin 4.2 g/dL (3.2-5.2); Albumin/Globulin Ratio 1.4 (1-3); BUN/Creatinine Ratio 9.5 (8-20); Calcium 9.2 mg/dL (8.6-10.3); EGFR African American 106.3 (>60); EGFR Non-African American 87.8 (>60); Globulin 2.9 g/dL (2-4); Total Bilirubin 0.3 mg/dL (0.2-1.0); Total Protein 7.1 g/dL (6.4-8.9)
[2019-04-03] MEDS ORDERED: Albuterol HFA INHALER* 8 gm MDI INH PRN (18:10)
[2019-04-03] MEDS: Morphine INJ* 2 MG/ML 1 ML SYRINGE (TWO MG - NEW SYRINGE VERSION) IV PRN (18:30)
[2019-04-03] MEDS: Cyclobenzaprine TAB* 10 MG PO PRN (18:32)
[2019-04-03] MEDS: Nicotine* 2MG (FRUIT FLAVOR) GUM PO PRN ×2 (18:33→21:19)
--- NOTE | 2019-04-03 19:27 | CONS ---
CONSULTATION NOTE: DATE OF CONSULT: 04/03/19 HISTORY OF PRESENT ILLNESS: The patient is a very pleasant 38-year-old female who presents to the emergency room with significant intractable back pain radiating to both lower extremities, left worse than right. This started approximately 3 weeks ago. The patient reports that it was of insidious onset, she woke up 1 morning and she had significant pain. The pain progressed over the next several days and she started having weakness in both lower extremities. She reports that her knees, especially the left one will give out and she almost fell. She had 1 episode of urinary incontinence 5 days ago and because of the persistence of her back pain and her difficulty to perform her daily activities, she presented to the emergency room. Requested to see the patient by the emergency room team because of MRI findings consistent with a very large left L5-S1 herniated nucleus pulposus. The patient reports that she has severe back pain radiating to the left more than the right lower extremity with significant weakness in left more than right lower extremity with numbness in left more than right lower extremity. The numbness radiates all the way down to her knee and occasionally to her foot. The patient has difficulty ambulating. She has tried chiropractic manipulation. She has tried pain medication without significant help. The patient was seen by her primary physician in [place] and was given prednisone and hydrocodone with some partial relief. The patient was seen also in urgent care and had an x-ray of her lumbar spine revealing degenerative disk disease especially in the L5-S1. The patient denies any urinary or GI incontinence at this time, but she had episodes of urinary incontinence 4 to 5 days ago. She reports that her perianal sensation is intact. The patient had a rectal exam performed by Dr. Leavitt in the emergency room and was reported to be normal. The patient is working as a personal instructor. She is single and she has 3 children. She is accompanied today by her daughter. PAST MEDICAL HISTORY: The patient has history of posttraumatic stress disorder , asthma, kidney stones, and kidney infection. PAST SURGICAL HISTORY: Varicose veins, hysterectomy, and kidney stones. HOME MEDICATIONS: The patient is on: 1. Tylenol. 2. Flexeril. 3. Ibuprofen. ALLERGIES: The patient is allergic to AMITRIPTYLINE and PENICILLINS. FAMILY HISTORY: Cardiac disease, diabetes. SOCIAL HISTORY: Alcohol, socially. Tobacco use, positive. Recreational drug use, negative. PHYSICAL EXAM: The patient is in moderate distress. She is not able to lay supine and the only comfortable position is to lay prone on the bed with pillows under her abdomen. She is walking with significant difficulty. She is favoring her left lower extremity. She is awake, alert, and oriented x3. Her pupils are equal and reactive. Cranial nerves II through XII are grossly intact. Motor 4 to 5/5 in all extremities with exception of the left lower extremity, which is 4/5 and possibly antalgic with 4-/5 on the left foot plantarflexion. Sensory grossly intact to light touch. Deep tendon reflexes + 1 bilaterally with exception of the left Achilles reflex, which is trace. The patient has no clonus. No Babinski. J Carlos's negative. Straight leg raise positive on the left in a sitting position. The patient has no tenderness to palpation of the cervical, thoracic, or lumbar spine. She has free range of motion in the cervical spine. DIAGNOSTIC STUDIES: The patient had an MRI of the thoracic spine that did not reveal any evidence of stenosis or neural foraminal stenosis. The patient had an MRI of the lumbar spine that reveals a large left L5-S1 herniated nucleus pulposus with significant mass effect. ASSESSMENT: The patient is a very pleasant 38-year-old female with history of posttraumatic stress disorder and recent onset of intractable back pain and left lower extremity radiculopathy, with MRI findings consistent with a large left L5-S1 herniated nucleus pulposus. PLAN: The patient at this point has significant difficulties with her daily activities. She has tried several conservative treatment modalities, but unfortunately these have not helped. She does have moderate degree of axial low back pain, but quite severe lower extremity radiculopathy with intractable pain that makes her having difficulty to even ambulate. We discussed the MRI findings as well as different treatment options including conservative treatment modalities and consideration for epidural steroid injections versus surgical intervention. I believe that the patient may benefit from a left L5- S1 diskectomy and possible laminectomy. The patient is in extreme pain and would not like to consider other options at this time. We discussed in extent regarding the expectations, limitations, and possible complications of the above procedure with complications including, but not limited to bleeding, infection, risk of injury to adjacent structures, coma, paralysis, , need for additional procedures, anesthesia risks, stroke, blindness, cancer, instability, recurrence of disease, spinal fluid leak, need for arthrodesis, loss of bladder or bowel control, hematoma formation, need for placement of a lumbar drain, injury to the esophagus and trachea, need for tracheostomy or gastrostomy, need for prolonged ICU stay, prolonged hospitalization and need for rehabilitation, need for dependence on the ventilator. The patient understood also that her condition may not improve and in fact may get worse after surgery and that she may need to have additional procedures in the future. She also understood that operative plan may be modified according to intraoperative findings and conditions and that the procedure may be abandoned or done in more than 1 stages. The patient feels that her pain is intractable and understands the risks associated with the surgery and would like to proceed with surgical intervention. We will recommend admission overnight with the plan to perform the operation tomorrow if the pain is still present, providing that the patient will have medical clearance. Dr. Leavitt is going to contact the hospitalist team. I appreciate Internal Medicine care. Thank you for allowing us to participate in the care of this patient. Please do not hesitate to contact our office in case if you have any further questions or concerns regarding the care of this patient. [id number]/[facility] #: [id number] SUSIE
--- NOTE | 2019-04-03 20:18 | HP ---
CC: [facility]; Dr. Leos * ADMISSION HISTORY AND PHYSICAL: DATE OF ADMISSION: 04/03/19 ATTENDING PHYSICIAN WHILE IN THE HOSPITAL: Dr. Randell Stein * (dictated by ASHLEIGH Mtz). PRIMARY CARE PROVIDER: Formerly Dr. Calderón; currently being followed by the [facility] but is unassigned to a physician. CHIEF COMPLAINT: Intractable back pain. HISTORY OF PRESENT ILLNESS: Allyn Rehman is a 38-year-old white female with past medical history significant for anxiety and exercise-induced asthma, who presented to the emergency department today due to progressively worsening back pain for 3 weeks and 4 days. The patient awoke with mild back pain 3 weeks and 4 days ago, and over the course of the day, increasingly became worse. She attempted to improve the pain with various [id number] medications ibuprofen and Tylenol with no avail. She went to her chiropractor and adjustments did not help. It became to the point where she could barely walk and she went to her primary care office and saw Sera Quinn NP, who prescribed her prednisone and the steroids did initially help; but, however, when she was tapered down off the prednisone, her pain began to worse again. She also attempted relief with p.r.n. Flexeril which was not providing great relief either. She does tell me that she has been having radiating pain down her left leg without a particular pattern based on movement or positioning. She tells me that she did have an episode of urinary incontinence, not in the setting of coughing or sneezing on 03/30/19 and has not had an episode since then. She denies bowel incontinence. She denies chest pain, difficulty breathing, fevers, chills, abdominal pain, nausea, vomiting, headaches, or visual changes. PAST MEDICAL HISTORY: 1. Exercise-induced asthma. 2. PTSD. 3. Anxiety. 4. History of endometriosis, status post partial hysterectomy. PAST SURGICAL HISTORY: 1. Partial hysterectomy, the patient still has her ovaries intact. 2. Varicose vein surgery, large and small saphenous veins were closed bilaterally. 3. Left-sided lithotripsy for nephrolithiasis and previous stent placement and subsequent removal in the setting of stent complication. HOME MEDICATIONS: 1. Doxepin 3 mg p.o. at bedtime (of note, the patient does take this in liquid form, but I was not able to enter this into the computer and she is okay with taking this in tab form as this was only due to insurance issue she tells me). 2. Albuterol inhaler 1 puff inhaled q.4 hours p.r.n. shortness of breath/ wheezing. 3. Propranolol 10 mg p.o. b.i.d. p.r.n. anxiety. 4. Venlafaxine 75 mg p.o. daily. 5. Tylenol 1000 mg p.o. q.6 hours p.r.n. pain. 6. Ibuprofen 800 mg p.o. q.6 hours p.r.n. pain. 7. Flexeril 10 mg p.o. t.i.d. p.r.n. muscle spasm. ALLERGIES: 1. AMITRIPTYLINE, reaction of urinary retention. 2. PENICILLINS, reactive of hives. FAMILY HISTORY: Mother is healthy and age 57. Her mother does not have history of diabetes, coronary artery disease, or stroke. Her father of an MVA and prior to that was overall healthy. Her paternal grandmother did have coronary artery disease and had a CABG. SOCIAL HISTORY: The patient works as a job checker. She has 3 kids and she is . She lives with her younger children. She smokes 5 to 6 cigarettes per day. She has been smoking for 16 years and has attempted quitting at times and did at one point smoke 1 pack per day. She drinks 2 to 4 alcoholic beverages per week and denies illicit drug use. REVIEW OF SYSTEMS: An 11-point review of systems was completed and all pertinent positives and negatives are above in the HPI. All other systems are negative. PHYSICAL EXAMINATION GENERAL: Young white female, lying prone in hospital bed, appearing somewhat comfortable, but in minimal distress when attempting to move. VITAL SIGNS: Temperature 98.7, pulse rate 89, respiratory rate 20, oxygen saturation 99% on room air, blood pressure 109/71. HEENT: Eyes: PERRL. Sclerae anicteric. ENT: Mucous membranes moist. LUNGS: Clear to auscultation throughout. CARDIO: Regular rate and rhythm without murmurs, rubs, or gallops. ABDOMEN: Soft, nontender, nondistended. EXTREMITIES: No clubbing, cyanosis, or edema. MUSCULOSKELETAL: Strength is 5/5 bilaterally with knee flexion and extension. NEURO: The patient is alert and oriented x3. Sensation is grossly intact throughout. PERTINENT DIAGNOSTIC STUDIES/LAB DATA: Lumbar spine MRI, an 8 mm central to left paracentral disk extrusion at L5-S1 contacts and displaces the descending left S1 nerve root. There is moderate spinal canal and mild left neural foraminal stenosis at this level. Mixed Modic type 1 and Modic type 2 degenerative endplate changes at L5-S1 are potential source of focal back pain. Thoracic spine MRI, impression: No significant neural foraminal narrowing or central canal stenosis. Unremarkable MRI of the thoracic spine. EKG: normal sinus rhythm, rate 69 beats per minute, no ST elevations or depressions, normal axis. White blood cell count 5.1, hemoglobin 12.4, hematocrit 36, platelet count 301. INR 0.93, PTT 31. Sodium 136, potassium 4.0, chloride 105, carbon dioxide 25, anion gap 6, BUN 7, creatinine 0.74, glucose 84, calcium 9.2. Unremarkable LFTs. ASSESSMENT AND PLAN: Allyn Rehman is a 38-year-old white female with past medical history significant for exercise-induced asthma and anxiety, who presents to the emergency department for intractable back pain. The patient will be admitted inpatient for: 1. Lumbar disk extrusion. Dr. Leos has been consulted and has evaluated the patient. He is planning to operate on the patient tomorrow unless her back pain is resolved tomorrow, and he has asked the hospitalist to help with this admission. The patient will be made n.p.o. after midnight. I will continue pain control. She did receive prednisone in the emergency department and I will give her Decadron tomorrow morning and a bowel regimen as well. The patient does not need to be bed rest only, but her activity will be up with assistance. I will order a type and screen. At this point, her preop chest x- ray is pending; however, I do not anticipate any issues with that. The patient has an RCRI risk score of 0 indicating 3.9% 30-day risk of , myocardial infarction, cardiac arrest. At this point, the patient is medically optimized for surgery and I will follow up on the chest x-ray and update Dr. Leos if there are any issues for the surgical intervention based on this chest x- ray. I will continue p.r.n. Flexeril as well. 2. Anxiety. I will continue the patient's home venlafaxine and propranolol. 3. Posttraumatic stress disorder. I will continue the patient's home doxepin. 4. Asthma. The patient tells me she has to run in order for this asthma to be exacerbated. I will continue her home p.r.n. albuterol inhaler. 5. FEN: The patient will have 100 cc per hour of lactated Ringer's after midnight when she is made n.p.o. Electrolytes are within normal limits. There is no need for repletion at this time, and the patient will have a regular unrestricted diet at this time and made n.p.o. after midnight. 6. DVT prophylaxis: The patient has a DVT risk score of 1. I will order SCDs. 7. Code status: The patient is full code. This case has been reviewed by my attending Dr. Randell Stein, and he agrees with this plan of care. TIME SPENT: Approximately 50 minutes was spent on this admission, approximately half the time was spent at the bedside evaluating the patient and discussing plan of care. ASHLEIGH MTZ [id number]/[facility] #: [id number] MTDRemy
[2019-04-03] MEDS: Senna TAB 8.6 mg* TAB PO SCH (21:12)
[2019-04-03] MEDS: Nicotine Patch Removal NOTE FOLLOW UP SCH (21:15)
[2019-04-03] MEDS: DOXEPIN 3 MG PO SCH (21:15)
[2019-04-04] MEDS: Lactated Ringers 1000 ML Bag* 1,000 ML IV SCH ×2 (00:29→11:22)
[2019-04-04] MEDS: Morphine INJ* 2 MG/ML 1 ML SYRINGE (TWO MG - NEW SYRINGE VERSION) IV PRN ×2 (02:47→07:46)
[2019-04-04] MEDS: Nicotine PATCH 7 MG/24 HR* PATCH TRANSDERM SCH (07:49)
[2019-04-04] MEDS: Senna TAB 8.6 mg* TAB PO SCH ×2 (07:57→21:35)
[2019-04-04] MEDS ORDERED: Dexamethasone IV* 10 MG in NS 0.9% 50 ML* 50 ML IVPB ONE (08:00)
[2019-04-04] MEDS ORDERED: Morphine INJ* 2 MG/ML 1 ML SYRINGE (TWO MG - NEW SYRINGE VERSION) IV PRN ×2 (10:40→21:26)
[2019-04-04] MEDS ORDERED: Bupivacaine 0.5% W/EPI SDV* 10 ML VIAL INJ ONE (12:33)
[2019-04-04] MEDS ORDERED: Bacitracin INJECTION* 50,000 UNITS ONE ×2 (12:33→15:30)
[2019-04-04] MEDS ORDERED: Midazolam* 1 MG/ML 5 ML VIAL (5 MG) ONE (13:04)
[2019-04-04] MEDS ORDERED: fentaNYL* 50 MCG/ML 2 ML VIAL (100 MCG VIAL) ONE ×2 (13:04→16:25)
[2019-04-04] MEDS ORDERED: Ondansetron INJ* 2 MG/ML VIAL ONE (13:07)
[2019-04-04] MEDS ORDERED: KETAMINE HCL* 50 MG/ML 10 ML VIAL ONE (13:07)
[2019-04-04] MEDS ORDERED: Propofol* 10 MG/ML 20 ML BTL ONE (13:07)
[2019-04-04] MEDS ORDERED: Dexamethasone IV* 4 MG/ML 1 ML (4 MG) ONE (13:07)
[2019-04-04] MEDS ORDERED: Rocuronium* 10 MG/ML VIAL ONE (13:07)
[2019-04-04] MEDS ORDERED: Famotidine IV* 10 MG/ML 2 ML (20 mg) ONE (13:12)
[2019-04-04] MEDS ORDERED: Vancomycin(*) 1,250 MG IV x ONCE IVPB ONE ×2 (13:30)
--- NOTE | 2019-04-04 13:36 | PN ---
Progress Note - Progress Note Date of Service: 04/04/19 Note: No events ON. Pain is still intractable. Neuro exam stable Will plan for surgical procedure. Medical clearance per hospitalist team. We again discussed in extent with patient, her significant other and her daughter regarding the expectations, limitations, and possible complications of the above procedure with complications including, but not limited to bleeding, infection, risk of injury to adjacent structures, coma, paralysis, , need for additional procedures, anesthesia risks, stroke, blindness, cancer, instability, recurrence of disc herniation, spinal fluid leak, need for arthrodesis, loss of bladder or bowel control, hematoma formation, need for placement of a lumbar drain, injury to the esophagus and trachea, need for tracheostomy or gastrostomy, need for prolonged ICU stay, prolonged hospitalization and need for rehabilitation, need for dependence on the ventilator. The patient understood also that her condition may not improve and in fact may get worse after surgery and that she may need to have additional procedures in the future. She also understood that operative plan may be modified according to intraoperative findings and conditions and that the procedure may be abandoned or done in more than 1 stages. The patient understands and would like to proceed with surgical intervention. IC was obtained. Darshana Leos MD
--- NOTE | 2019-04-04 14:05 | PN ---
Subjective Date of Service: 04/04/19 Interval History: Patient continuing to have low back pain radiating down her left leg, but newly this AM with radiating pain reaching bottom of her foot. Pain control still different for her. Denies chest pain, difficulty breathing, fever/chills, abd pain. Plan for OR today with Dr. Leos. Denies urinary/bowel incontinence. Objective Active Medications: Acetaminophen (Tylenol Tab*) 650 mg PO Q4H PRN PRN Reason: MILD PAIN or TEMP > 100.4 Albuterol (Ventolin Hfa Inhaler*) 1 puff INH Q4H PRN PRN Reason: SOB/WHEEZING Cyclobenzaprine HCl (Flexeril Tab*) 10 mg PO TID PRN PRN Reason: SPASMS Last Admin: 04/03/19 18:32 Dose: 10 mg Doxepin HCl (Silenor (Nf)) 3 mg PO BEDTIME [facility] Last Admin: 04/03/19 21:15 Dose: Not Given Lactated Ringer's (Lactated Ringers 1000 Ml Bag*) 1,000 mls @ 100 mls/hr IV PER RATE [facility] Last Admin: 04/04/19 11:22 Dose: 100 mls/hr Vancomycin HCl 1,250 mg/ (Sodium Chloride) 250 mls @ 166.667 mls/hr IVPB ONCE ONE Stop: 04/04/19 14:59 Morphine Sulfate (Morphine Inj (Syringe))*) 2 mg IV Q2H PRN PRN Reason: pain - breakthrough Last Admin: 04/04/19 10:52 Dose: 2 mg Nicotine (Nicotine Patch 7 Mg/24 Hr*) 1 patch TRANSDERM DAILY [facility] Last Admin: 04/04/19 07:49 Dose: 1 patch Nicotine Polacrilex (Nicotine Gum*) 2 mg PO Q2H PRN PRN Reason: CRAVING Last Admin: 04/03/19 21:19 Dose: 2 mg Ondansetron HCl (Zofran Inj*) 4 mg IV Q4H PRN PRN Reason: NAUSEA/VOMITING Oxycodone/Acetaminophen (Percocet 5/325 Tab*) 1 tab PO Q4H PRN PRN Reason: PAIN - MODERATE Oxycodone/Acetaminophen (Percocet 5/325 Tab*) 2 tab PO Q4H PRN PRN Reason: PAIN - SEVERE Last Admin: 04/03/19 21:13 Dose: 2 tab Pharmacy Profile Note (Nicotine Patch Removal Note*) 1 note FOLLOW UP 2100 [facility] Last Admin: 04/03/19 21:15 Dose: Not Given Propranolol HCl (Inderal 10 Mg Tab) 10 mg PO BID PRN PRN Reason: ANXIETY Last Admin: 04/03/19 21:13 Dose: 10 mg Senna (Senokot 8.6 Mg Tab*) 1 tab PO BID [facility] Last Admin: 04/04/19 07:57 Dose: Not Given Venlafaxine HCl (Effexor Xr Cap*) 75 mg PO BEDTIME [facility] Vital Signs - 8 hr 04/04/19 04/04/19 04/04/19 07:10 07:45 07:46 Temperature 97.2 F Pulse Rate 62 Respiratory 14 16 16 Rate Blood Pressure 133/80 (mmHg) O2 Sat by Pulse 100 Oximetry 04/04/19 04/04/19 04/04/19 09:00 10:52 11:06 Temperature 97.4 F Pulse Rate 65 Respiratory 16 16 16 Rate Blood Pressure 135/77 (mmHg) O2 Sat by Pulse 100 Oximetry Oxygen Devices in Use Now: None Appearance: Young, white female, laying prone in bed, appearing comfortable and in NAD Eyes: No Scleral Icterus, - - PERRL Ears/Nose/Mouth/Throat: Mucous Membranes Moist Neck: Trachea Midline Respiratory: Symmetrical Chest Expansion and Respiratory Effort, Clear to Auscultation Cardiovascular: NL Sounds; No Murmurs; No JVD, RRR Abdominal: - - abd soft, nontender Extremities: No Edema, No Clubbing, Cyanosis Skin: No Rash or Ulcers Neurological: Alert and Oriented x 3 Result Diagrams: 04/03/19 17:17 04/03/19 17:17 Assess/Plan/Problems-Billing Assessment: 38 yo white female with PMHx exercise-induced asthma, anxiety, PTSD presents with intractable back pain for over 3 weeks. - Patient Problems (1) Lumbar disc herniation Current Visit: Yes Status: Acute Code(s): M51.26 - OTHER INTERVERTEBRAL DISC DISPLACEMENT, LUMBAR REGION SNOMED Code(s): 977821731 Comment: -demonstrated from L5-S1 on lumbar MRI -continue pain control and bowel regimen -NPO after midnight for surgery with Dr. Leos today (2) Asthma Current Visit: Yes Status: Acute Code(s): J45.909 - UNSPECIFIED ASTHMA, UNCOMPLICATED SNOMED Code(s): 769617836 Comment: -exercise-induced -prn albuterol ordered (3) PTSD (post-traumatic stress disorder) Current Visit: Yes Status: Acute Code(s): F43.10 - POST-TRAUMATIC STRESS DISORDER, UNSPECIFIED SNOMED Code(s): 78854816 Comment: -continue coxepin (4) Anxiety Current Visit: Yes Status: Acute Code(s): F41.9 - ANXIETY DISORDER, UNSPECIFIED SNOMED Code(s): 91841280 Comment: -continue propranolol and venlafaxine (5) DVT prophylaxis Current Visit: Yes Status: Acute Code(s): Z29.9 - ENCOUNTER FOR PROPHYLACTIC MEASURES, UNSPECIFIED SNOMED Code(s): 254599097 Comment: -SCDs (6) Full code status Current Visit: Yes Status: Acute Code(s): Z78.9 - OTHER SPECIFIED HEALTH STATUS SNOMED Code(s): 698882912 Status and Disposition: inpatient
[2019-04-04] MEDS ORDERED: Lidocaine 2% PF * 5 ML VIAL ONE (14:20)
[2019-04-04] MEDS ORDERED: Acetaminophen IV 1GM/100ML * 100 ML ONE (14:22)
[2019-04-04] MEDS ORDERED: Levalbuterol 0.63MG/3ML NEB* UNIT OF USE INH PRN (14:38)
[2019-04-04] MEDS ORDERED: Naloxone* 0.4 MG/ML 1 ML VIAL IV PRN (14:38)
[2019-04-04] MEDS ORDERED: DiMENhydriNATE IV* 50 MG/ML VIAL IV PUSH PRN (14:38)
[2019-04-04] MEDS ORDERED: diPHENhydraMINE IV* 50 MG/ML 1 ml VIAL (BENADRYL) IV PRN (14:38)
[2019-04-04] MEDS ORDERED: Magnesium Hydroxide LIQ* 30 ML UDC PO PRN (16:24)
[2019-04-04] MEDS ORDERED: HYDROcodone/ACETAMIN 5-325 MG* 1 TAB PO PRN ×2 (16:24)
[2019-04-04] MEDS: fentaNYL* 50 MCG/ML 2 ML VIAL (100 MCG VIAL) IV PRN ×2 (16:27→16:37)
[2019-04-04] MEDS: Nicotine* 2MG (FRUIT FLAVOR) GUM PO PRN ×2 (17:44→19:40)
[2019-04-04] MEDS: DOXEPIN 3 MG PO SCH (19:36)
[2019-04-04] MEDS ORDERED: Venlafaxine EXT RELEASE CAP* 75 MG PO SCH (21:00)
--- NOTE | 2019-04-04 21:19 | CONSULT ---
Consult Consult: April 04, 2019 INPATIENT PAIN CONSULTATION Allyn Rehman is a 38 year old female. Roughly 3 weeks ago, she woke up with severe pain in her low back radiating down her legs, left>>right. It was a Sunday, so she rested it. The next day, before work, she went to [facility] and was adjusted. It did not help. She continued to go to work but had severe pain. She went to the chiropractor twice a week for adjustments. It was not helping. She could barely walk. Her primary care doctor had left [place] , so she saw Sera Quinn NP. She was given an 8 day course of Prednisone, which helped immensely, and NOrco, 5/325 which she took at night to help her sleep. She was given a referral to Physical Therapy but her first appointment was scheduled for April 07. After the prednisone ended, her pain was severe, and she went to [facility] on March 31. She had an x-ray of her lumbar spine and was referred to Sports Medicine, but that appointment was April 08. The pain was severe and she was soaking in a hot tub on April 03. After she got out, her legs froze and she had trouble moving them. Her boyfriend took her home, and her grandmother took her to the ER at [facility]. SHe had an MRI of her lumbar spine showing a large HNP at L5/S1. She was evaluated by neurosurgery and was taken to the OR today for a L5/S1 diskectomy. I am asked to see her in consultation PAST MEDICAL HISTORY: PTSD, asthma, kidney stones Allergies Allergy/AdvReac Type Severity Reaction Status Date / Time amitriptyline Allergy See Comment Verified 04/03/19 11:14 latex Allergy Rash Verified 04/04/19 12:23 Penicillins Allergy Hives Verified 04/03/19 11:14 Current Medications Acetaminophen (Tylenol Tab*) 650 mg PO Q4H PRN PRN Reason: MILD PAIN or TEMP > 100.4 Albuterol (Ventolin Hfa Inhaler*) 1 puff INH Q4H PRN PRN Reason: SOB/WHEEZING Cyclobenzaprine HCl (Flexeril Tab*) 10 mg PO TID PRN PRN Reason: SPASMS Last Admin: 04/03/19 18:32 Dose: 10 mg Doxepin HCl (Silenor (Nf)) 3 mg PO BEDTIME [facility] Last Admin: 04/04/19 19:36 Dose: Not Given Lactated Ringer's (Lactated Ringers 1000 Ml Bag*) 1,000 mls @ 100 mls/hr IV PER RATE [facility] Last Admin: 04/04/19 11:22 Dose: 100 mls/hr Magnesium Hydroxide (Milk Of Magnesia Liq*) 30 ml PO DAILY PRN PRN Reason: CONSTIPATION Morphine Sulfate (Morphine Inj (Syringe))*) 2 mg IV Q4H PRN PRN Reason: pain - breakthrough Nicotine (Nicotine Patch 7 Mg/24 Hr*) 1 patch TRANSDERM DAILY [facility] Last Admin: 04/04/19 07:49 Dose: 1 patch Nicotine Polacrilex (Nicotine Gum*) 2 mg PO Q2H PRN PRN Reason: CRAVING Last Admin: 04/04/19 19:40 Dose: 2 mg Ondansetron HCl (Zofran Inj*) 4 mg IV Q4H PRN PRN Reason: NAUSEA/VOMITING Pharmacy Profile Note (Nicotine Patch Removal Note*) 1 note FOLLOW UP 2100 [facility] Last Admin: 04/03/19 21:15 Dose: Not Given Propranolol HCl (Inderal 10 Mg Tab) 10 mg PO BID PRN PRN Reason: ANXIETY Last Admin: 04/03/19 21:13 Dose: 10 mg Senna (Senokot 8.6 Mg Tab*) 1 tab PO BID [facility] Last Admin: 04/04/19 07:57 Dose: Not Given Venlafaxine HCl (Effexor Xr Cap*) 75 mg PO BEDTIME [facility] SOCIAL HISTORY: 1/3 ppd smoker, drinks several times a week, no illicit drugs. Lives in a 1 story house with her 16 year old son and her grandmother. Works as a life sciences instructor for [employer] ROS: No SOB or CP. Reports IBS. Vital Signs Temp Pulse Resp BP Pulse Ox 97.5 F 76 18 100/51 98 04/04/19 19:35 04/04/19 19:35 04/04/19 19:35 04/04/19 19:35 04/04/19 19:35 EXAM: GENERAL: A&O x 3 LUNGS: Clear HEART: Reg rhythm ABDOMEN: Soft, +BS BACK: Bandage over wound EXTREMITIES: Normal tone NEUROLOGIC: Sensation appears intact. ABle to walk with me. Leg strength appears 5/5 ASSESSMENT: 1. Lumbar Radiculopathy 2. S/P L5/S1 diskectomy PLAN: Her hydrocodone is not as effective as she would like. I will stop it and try Percocet 1-2 Q4 PRN> Will decrease IV Morphine frequency. She has senna for her bowels and flexeril.
[2019-04-04] MEDS ORDERED: oxyCODONE/Acetamin 5/325 MG* TAB PO PRN (21:28)
[2019-04-04] MEDS: Nicotine Patch Removal NOTE FOLLOW UP SCH (21:36)
[2019-04-04] MEDS: oxyCODONE/Acetamin 5/325 MG* TAB PO PRN (22:01)
[2019-04-05] MEDS: oxyCODONE/Acetamin 5/325 MG* TAB PO PRN ×2 (02:06→11:38)
--- NOTE | 2019-04-05 02:24 | OP ---
OPERATIVE REPORT: DATE OF OPERATION: 04/04/19 DATE OF : 80 SURGEON: Jaspreet Leos MD ANESTHESIA: General. PRE-OP DIAGNOSIS: Herniated nucleus pulposus. POST-OP DIAGNOSIS: Herniated nucleus pulposus. OPERATIVE PROCEDURE: The patient underwent left L5-S1 MIS discectomy and partial laminectomy. ESTIMATED BLOOD LOSS: 5 cc. COMPLICATIONS: None. SUMMARY: The patient is a very pleasant 38-year-old female with a past medical history of anxiety and exercise-induced asthma, who presented to the emergency room due to progressive worsening back pain and left lower extremity pain. The patient had an MRI of her lumbar spine which revealed a large left L5-S1 herniated nucleus pulposus. The patient had tried several conservative treatment modalities, but the pain was intractable and was admitted to the hospital. The patient was offered the option of surgical intervention and after explaining in details the expectations, limitations, possible complications of the procedure to the patient and her family including her significant other and her daughter with complications including but not limited to bleeding, infection, risk of injury to adjacent structures, coma, paralysis, , need for additional procedures, anesthesia risks, stroke, blindness, cancer, instability, adjacent level disease, pseudoarthrosis, spinal fluid leak , need for additional procedures, recurrence of disc herniation, injury to trachea or esophagus, need for tracheostomy and gastrostomy, and need for prolonged ICU stay, prolonged rehabilitation, prolonged hospitalization, deep venous thrombosis, anesthesia risk, the patient was agreeable to proceed with surgery and informed consent was obtained. The patient understood that her condition may not improve and in fact may get worse after surgery and that she may need to have additional procedures in the future. She also understood that the operative plan may be modified according to intraoperative findings and conditions, and that the case may be abandoned or done in more than 1 stage. The patient understood that she may require prolonged hospitalization, prolonged rehabilitation, and prolonged ICU stay. DESCRIPTION OF PROCEDURE: The patient was brought to the operating room and was placed under general anesthesia by the anesthesia team. She was carefully positioned prone on the Dyllan frame on the Sammy table and all bony prominences were meticulously padded. Her skin was prepped and draped in a standard fashion. After appropriate surgical pause and patient identification, the surgical incision site was identified with use of intraoperative fluoroscopic imaging. A small left paramedian incision was marked on the skin at the L5-S1 disc level and the skin was infiltrated with local anesthetic. A # 10 surgical blade was used to incise the skin and the incision was carried down to subcutaneous tissue. The dorsal fascia was divided with surgical blade and over a series of dilators, the [employer] tubular retractor system was introduced into the field. Intraoperative microscope was brought into the field and the left L5 lamina and the medial portion of the L5-S1 facet was identified. Intraoperative fluoroscopic imaging confirmed appropriate surgical level and second surgical pause was performed. A high-speed drill and Kerrison punches were used to perform a partial laminectomy and hemilaminectomy towards the left side and minimal partial medial facetectomy. The ligamentum flavum was gently reflected and the thecal sac was identified. This was gently retracted medially and protected with nerve root retractor. A large disc herniation was found to be protruding under the posterior longitudinal ligament as expected from the preoperative MRI. After incising the posterior longitudinal ligament and the annulus fibrosus with #15 surgical blade, a very large disc fragment was identified and was gently removed. Then, the discectomy was completed for removing all the loose fragments into the disc space and after copious irrigation, confirmation of meticulous hemostasis and meticulous inspection, the thecal sac and the nerve root was found to be free of any pressure phenomenon, and the tubular retractor was gently removed. After confirmation of meticulous hemostasis and copious irrigation and meticulous inspection, the wound was closed by layers with 0 interrupted Vicryl sutures to approximate the dorsal fascia and 2-0 inverted interrupted Vicryl sutures to approximate the subcutaneous tissue. The skin was covered with Dermabond. At the end of the procedure, all counts were reported to be correct. The patient remained hemodynamically stable throughout the case. She was then turned supine, was extubated, and was transferred to recovery in excellent condition. [id number]/[facility] #: [id number] SUSIE
[2019-04-05] MEDS: Senna TAB 8.6 mg* TAB PO SCH (07:32)
[2019-04-05] MEDS: Nicotine* 2MG (FRUIT FLAVOR) GUM PO PRN ×2 (07:34→13:36)
[2019-04-05] MEDS: Nicotine PATCH 7 MG/24 HR* PATCH TRANSDERM SCH (07:42)
[2019-04-05] MEDS: Cyclobenzaprine TAB* 10 MG PO PRN ×2 (08:49→14:47)
[2019-04-05 11:37] VITALS: BP 118/78
--- NOTE | 2019-04-05 14:57 | PN ---
Progress Note - Progress Note Date of Service: 04/05/19 SOAP: Subjective: []No events ON. Patient tolerated the procedure well yesterday. Preop pain resolved. Ambulates, Voids, Tolerates PO well. Wants to go home. Objective: []VSS, Afebrile. Wound s,c,d AAOx3 , YO, CN II-XII grossly intact Motor 5/5 all extremities Sensory grossly intact to light touch Assessment: []38 yof POD#1 Left L5-S1 MIS discectomy Plan: []Monitor VS, Neurochecks Encourage ambulation. DC planning today. Full instructions were given to patient. Follow up in our office in 7-10 days. Darshana Leos MD
--- NOTE | 2019-04-05 15:43 | DS ---
CC: Dr. Leos; Sera Quinn NP * DISCHARGE SUMMARY: DATE OF ADMISSION: 04/03/19 DATE OF DISCHARGE: 04/05/19 PROVIDER: ASHLEIGH Mtz ATTENDING PHYSICIAN WHILE IN THE HOSPITAL: Dr. Randell Stein * (dictated by ASHLEIGH Mtz) CONSULTING NEUROSURGEON: Dr. Leos. PRIMARY CARE PROVIDER: Sera Quinn at [facility]. PRIMARY DIAGNOSIS: Lumbar disk with herniated nucleus pulposus status post L5- S1 diskectomy and partial laminectomy. SECONDARY DIAGNOSES: 1. Exercise-induced asthma. 2. Posttraumatic stress disorder. 3. Anxiety. 4. History of endometriosis, status post partial hysterectomy. 5. Tobacco use. PROCEDURES WHILE IN THE HOSPITAL: L5-S1 MIS diskectomy and partial laminectomy performed by Dr. Leos on 04/04/19. HISTORY OF PRESENT ILLNESS/HOSPITAL COURSE: Allyn Rehman is a 38-year-old white female with past medical history significant for exercise-induced asthma, PTSD and anxiety who presented to the emergency department on 04/03/19 due to ongoing intractable back pain that has been worsening over the last 3 weeks. The patient had an MRI in the emergency room which demonstrated L5-S1 disk herniation with moderate spinal canal and left-sided neuroforaminal stenosis. The patient was admitted to the hospital for pain control and for planned surgery by Dr. Leos. The patient underwent surgery as described above on 04/04/19 and afterwards was seen in consultation by the pain specialist Dr. Oneill. By date of discharge, the patient is feeling quite well. Her back pain was greatly improved and was under good control with the pain regimen as recommended by Dr. Oneill. She ambulated around the unit without difficulty and was working with Physical Therapy, who had no reservations about her discharge to home without any need for acute physical therapy. The patient was very pleased with her current level of back pain, had no complaints of fever, chills, lower extremity numbness, weakness, tingling, and no loss of control of bowel or bladder. Of note, she did initially have pain radiating down her left lower extremity, which has now resolved. PHYSICAL EXAM ON DAY OF DISCHARGE: General: Young white female, lying in hospital bed, appearing comfortable in no acute distress. Eyes: PERRLA. Sclerae anicteric. Lungs: Clear to auscultation throughout. Cardio: Regular rate and rhythm. No murmurs, rubs, or gallops. Abdomen: Soft, nontender, nondistended. Extremities: No clubbing, cyanosis or edema. Neuro: The patient is alert and oriented x3. Sensation is grossly intact in bilateral lower extremities and strength is 5/5 in bilateral lower extremities. DISCHARGE PLAN: DISCHARGE INSTRUCTIONS: The patient is to follow up with Dr. Leos in 7 to 10 days. She is advised against lifting, bending and twisting. She is to perform wound care and she may shower tomorrow. She is advised to avoid hot tubs and bath. She is advised to return to emergency department if she is having significant blood loss from her wound such as continued blood loss from her wound, purulent drainage from her wound, fever, chills, weakness, numbness, or tingling in extremities or urinary or bowel incontinence. The patient should additionally have followup the next month through her primary care office and she is currently unassigned to a physician at the [facility], but following with Sera Quinn NP would be of great benefit to her. DISCHARGE DIET: Regular. DISCHARGE ACTIVITY: The patient may return to normal activity as tolerated though advised to avoid bending, lifting, twisting. DISCHARGE MEDICATIONS: New medications: 1. Tylenol 650 mg p.o. q.4 hours p.r.n. pain. 2. Nicotine patch 7 mg per 24 hours 1 patch transdermally daily. 3. Oxycodone/acetaminophen 5 mg/325 mg 1 to 2 tabs p.o. q.4 hours p.r.n. severe pain. Maximum daily dose 10 tabs. Continued home medications: 1. Senna 1 tab p.o. b.i.d. 2. Flexeril 10 mg p.o. t.i.d. p.r.n. muscle spasms. 3. Ibuprofen 800 mg p.o. q.6 hours p.r.n. pain. 4. Venlafaxine 75 mg p.o. daily. 5. Propranolol 10 mg p.o. b.i.d. p.r.n. anxiety. 6. Albuterol inhaler 1 puff inhaled q.4 hours p.r.n. shortness of breath/ wheezing. 7. Doxepin 10 mg p.o. at bedtime. DISCHARGE CONDITION: Stable. DISPOSITION: Home. TIME SPENT: Approximately 35 minutes was spent on this discharge, approximately half of this time was spent at bedside evaluating the patient and discussing the plan of care and coordinating her discharge plan. ASHLEIGH MTZ [id number]/[facility] #: [id number] [facility]
== END 2019-04-05 15:27 | disposition home or self-care (01) | DRG 310 ==
LOC: ED 11:11 → SSU 17:28
PROVIDERS: ADMIT Neurological Surgery; ATTEND Neurological Surgery
PROC: 0SB40ZZ Excision of Lumbosacral Disc, Open Approach (ICD-10-PCS; principal; 2019-04-04 13:00)
DX: M51.27 Other intervertebral disc displacement, lumbosacral region (principal); F43.10 Post-traumatic stress disorder, unspecified; F41.0 Panic disorder [episodic paroxysmal anxiety]; J45.990 Exercise induced bronchospasm; M54.17 Radiculopathy, lumbosacral region; F17.210 Nicotine dependence, cigarettes, uncomplicated; Z88.0 Allergy status to penicillin; Z88.8 Allergy status to other drugs, medicaments and biological substances; Z79.899 Other long term (current) drug therapy
CPT/HCPCS: 36415; 72146; 72148; 76000; 80053; 85025; 85610; 85730; 86850; 86900; 86901; 93005; 96374; 99284; A9270-GY; J1100; J1885; J2250; J2270; J2405; J2704; J3010; J3370; J7512